=== PATIENT | male | born 1985 | race Caucasian/White ===

== ENCOUNTER 2022-04-26 00:40 | Inpatient (IN) | payer OTHER, SELFPAY ==
[2022-04-26] VITALS (9 sets, daily range): BP systolic 124–141; BP diastolic 75–92; PULSE 75–102; RESP 18–20; TEMP 36.3–37.1; O2SAT 94–97; BMI 31.0
--- NOTE | 2022-04-26 00:56 | ED_ITS ---
HPI - Psych General Chief Complaint: Psychiatric Symptoms <Radha Davies NP - Last Filed: 04/26/22 04:47> Stated Complaint: CRISIS <Radha Davies NP - Last Filed: 04/26/22 04:47> Time Seen by Provider: 04/26/22 00:52 <Radha Davies NP - Last Filed: 04/26/22 04:47> Source: patient and EMS <Radha Davies NP - Last Filed: 04/26/22 04:47> Mode of arrival: EMS <Radha Davies NP - Last Filed: 04/26/22 04:47> Limitations: no limitations <Radha Davies NP - Last Filed: 04/26/22 04:47> History of Present Illness HPI Narrative: 36-year-old male presents via EMS for crisis evaluation. Patient made a suicidal statement to his ex-, was on a social media anni and had a gun pointed to his head. Patient's ex- called police, police found this patient outside of a bar intoxicated, police called EMS to have patient evaluated in the emergency department. Upon presentation to the emergency department, patient is belligerent, refusing the changeover, and threatening violence to staff members. <ROSEMARY Mackey Last Filed: 04/26/22 04:47> MD complaint: suicidal ideation, feels depressed and alcohol abuse <Radha Davies NP - Last Filed: 04/26/22 04:47> Onset (ago): unknown <Radha Davies NP - Last Filed: 04/26/22 04:47> Exacerbating factors: alcohol <Radha Davies NP - Last Filed: 04/26/22 04:47> Context: recent alcohol abuse <Radha Davies NP - Last Filed: 04/26/22 04:47> Associated psychiatric symptoms: depression and suicidal ideation <Radha Davies NP - Last Filed: 04/26/22 04:47> Treatments prior to arrival: placed on mental health hold <ROSEMARY Mackey Last Filed: 04/26/22 04:47> If self harm: admits thoughts of self harm and has plan <Radha Davies NP - Last Filed: 04/26/22 04:47> Related Data Home Medications: Home Medications Medication Instructions Recorded Confirmed alprazolam 1 mg tablet 1 mg PO TID PRN Anxiety 04/26/22 04/26/22 oxycodone 5 mg tablet 5 mg PO Q4H PRN Breakthrough Pain, 04/26/22 04/26/22 Moderate <Radha Davies NP - Last Filed: 04/26/22 04:47> Allergies/Adverse Reactions: Allergies Allergy/AdvReac Type Severity Reaction Status Date / Time No Known Allergies Allergy Verified 04/26/22 01:04 <Radha Davies NP - Last Filed: 04/26/22 04:47> Review of Systems Review of Systems: Yes Unobtainable due to mental status (Patient noncompliant at this time) <Radha Davies NP - Last Filed: 04/26/22 04:47> [facility] Past Medical History Attestation statement: The following information was validated with the patient. <Radha Davies NP - Last Filed: 04/26/22 04:47> Source: old records reviewed <Radha Davies NP - Last Filed: 04/26/22 04:47> Social History Social History: Social History Advance Directives: No Advance Directives Information Provided: Yes <Radha Davies NP - Last Filed: 04/26/22 04:47> Physical Exam Vital Signs: Vital Signs: Last Vital Signs Temp 98.7 F 04/26/22 01:02 Pulse 102 H 04/26/22 01:02 Resp 04/26/22 02:55 BP 141/92 H 04/26/22 01:02 Pulse Ox 94 04/26/22 01:02 O2 Del Method 04/26/22 01:02 BMI result Body Mass Index 31.0 <Radha Davies NP - Last Filed: 04/26/22 04:47> Vital Signs: Last Vital Signs Temp 98.7 F 04/26/22 01:02 Pulse 102 H 04/26/22 01:02 Resp 04/26/22 02:55 BP 141/92 H 04/26/22 01:02 Pulse Ox 94 04/26/22 01:02 O2 Del Method 04/26/22 01:02 BMI result Body Mass Index 31.0 <Destinee Ley MD - Last Filed: 04/26/22 07:05> Appearance: Alert. Intoxicated. Uncooperative. Eyes: Pupils equal, round and reactive to light. ENT: Pharynx normal. Neck: Normal inspection. Neck supple. CVS: Tachycardic heart rate and rhythm. Respiratory: No respiratory distress. Breath sounds normal. Abdomen: Soft and nontender. Skin: Skin warm and dry. Normal skin color. Normal skin turgor. Extremities: Gait balanced and coordinated. Neuro: No motor deficit. No sensory deficit. Cranial nerves 2-12 intact. <Radha Davies NP - Last Filed: 04/26/22 04:47> Course Course Course Narrative: 36-year-old male presents via EMS for suicidal statement, ex- called the police because during correspondence on a social media appy, patient had a gun pointed to his head. Police were able to find the patient outside of a bar intoxicated, and encourages patient to present to the emergency department vo luntarily EMS stated that this patient was cooperative on transport, once patient got to the emergency department he believed that he could leave. One patient was informed that he could not leave, he became belligerent, argumentative, threatening staff. Patient was physically and medically restra ined for his safety. Alcohol level 169, patient not be able to be evaluated until the morning. Ann morgan moved from [place] to [place] about 2 weeks ago. Patient has not presented to this facility in the past. Section 12 bed search. <Radha Davies NP - Last Filed: 04/26/22 04:47> Reevaluation(s) Reevaluation #1: Continue physician observation, patient is due to be seen by the care team but has significant events involving suicidal ideation with suicidal gesture with a gun. Patient required physical and medication restrained last night, he is not on medications and has significant inciting events such as anniversary of his brother's as well as an ongoing divorce. He has been placed on a CIWA for suspected chronic alcohol use. This patient is a high flight risk. <Destinee Ley MD - Last Filed: 04/26/22 07:05> Time: 07:04 <Destinee Ley MD - Last Filed: 12/27/22 07:05> Medications Administered Discontinued Medications Generic Name Dose Route Start Last Admin Trade Name Freq PRN Reason Stop Dose Admin Midazolam HCl 4 mg 04/26/22 01:48 04/26/22 02:00 Midazolam Hcl/Pf 2 Mg/2 Ml Vial IM 04/26/22 01:49 4 mg ONCE ONE Administration Olanzapine 10 mg 04/26/22 01:48 04/26/22 02:00 Olanzapine 10 Mg Vial IM 04/26/22 01:49 10 mg STAT STA Administration <Radha Davies NP - Last Filed: 04/26/22 04:47> Medications Administered Discontinued Medications Generic Name Dose Route Start Last Admin Trade Name Freq PRN Reason Stop Dose Admin Midazolam HCl 4 mg 04/26/22 01:48 04/26/22 02:00 Midazolam Hcl/Pf 2 Mg/2 Ml Vial IM 04/26/22 01:49 4 mg ONCE ONE Administration Olanzapine 10 mg 04/26/22 01:48 04/26/22 02:00 Olanzapine 10 Mg Vial IM 04/26/22 01:49 10 mg STAT STA Administration <Destinee Ley MD - Last Filed: 04/26/22 07:05> Medical Decision Making Differential Diagnosis Differential Diagnoses: The differential diagnosis associated with the presentation includes <Radha Davies NP - Last Filed: 04/26/22 04:47> Crisis, intoxication <Radha Davies NP - Last Filed: 04/26/22 04:47> Admission/Observation Consideration of admission/observation: Escalation of care including admission/observation considered <Radha Davies NP - Last Filed: 04/26/22 04:47> Section 12 bed search <Radha Davies NP - Last Filed: 04/26/22 04:47> Consult Healthcare Provider Management of the patient was discussed with: Behavioral Health Provider <Radha Davies NP - Last Filed: 04/26/22 04:47> Lab Data MDM Lab Attestation statement: I reviewed the patient's lab results. <Radha Davies NP - Last Filed: 04/26/22 04:47> Result Diagrams: : 04/26/22 01:08 04/26/22 01:08 <Radha Davies NP - Last Filed: 04/26/22 04:47> Labs: Lab Results 04/26/22 04/26/22 04/26/22 Range/Units 01:08 01:08 01:08 WBC 13.9 H (4.8-10.8) X10*3/uL RBC 5.16 (4.60-5.80) X10*6/uL Hgb 15.3 (14.0-18.0) g/dl Hct 45.6 (42.0-52.0) % MCV 88.4 (80.0-98.0) fL MCH 29.7 (27.0-33.0) pg MCHC 33.6 (31.0-36.0) g/dl RDW 13.6 (11.0-16.0) % Plt Count 381 (160-400) X10*3/uL MPV 8.9 L (9.4-12.4) fL Immature Gran % (Auto) 0.9 H (0.0-0.4) % Neut % (Auto) 72.4 (45-73) % Lymph % (Auto) 20.2 (20-40) % Gulf % (Auto) 4.7 (2-11) % Eos % (Auto) 1.2 (0-4) % Baso % (Auto) 0.6 (0-2) % Lymph # (Auto) 2.8 (1.2-4.9) X10*3/uL Gulf # (Auto) 0.7 (0.1-1.2) X10*3/uL Eos # (Auto) 0.2 (0.0-0.4) X10*3/uL Baso # (Auto) 0.1 (0.0-0.2) X10*3/uL Abs Immat Gran (auto) 0.13 H (0.00-0.03) X10*3/uL Absolute Neuts (auto) 10.1 H (2.0-8.3) x10*3/uL Absolute Nucleated RBC 0.000 (0.0-0.012) X10*3/uL Nucleated RBC % (auto) 0.0 (0.0-0.2) /100WBC Sodium 146 H (135-145) mmol/L Potassium 4.8 (3.3-5.1) mmol/L Chloride 109 H (96-108) mmol/L Carbon Dioxide 21 L (22-29) mmol/L Anion Gap 21 H (12-20) BUN 14 (9-16) mg/dL Creatinine 0.89 (0.5-1.4) mg/dL Estim Creat Clear Calc 131.9 Estimated GFR > 60 Random Glucose 92 (60-115) mg/dL Calcium 9.5 (8.4-10.2) mg/dL Total Bilirubin 0.2 (0.0-1.0) mg/dL AST 26 (5-37) U/L ALT 32 (0-40) U/L Alkaline Phosphatase 83 (39-117) U/L Total Protein 7.4 (6.5-8.0) g/dL Albumin 4.4 (3.5-5.0) g/dL Ethyl Alcohol mg/dL Influenza Type A (PCR) NEGATIVE (Negative) Influenza Type B (PCR) NEGATIVE (Negative) RSV RNA Qual (PCR) NEGATIVE (Negative) SARS-CoV-2 RNA (RT-PCR) NEGATIVE (Negative) 04/26/22 Range/Units 01:08 WBC (4.8-10.8) X10*3/uL RBC (4.60-5.80) X10*6/uL Hgb (14.0-18.0) g/dl Hct (42.0-52.0) % MCV (80.0-98.0) fL MCH (27.0-33.0) pg MCHC (31.0-36.0) g/dl RDW (11.0-16.0) % Plt Count (160-400) X10*3/uL MPV (9.4-12.4) fL Immature Gran % (Auto) (0.0-0.4) % Neut % (Auto) (45-73) % Lymph % (Auto) (20-40) % Gulf % (Auto) (2-11) % Eos % (Auto) (0-4) % Baso % (Auto) (0-2) % Lymph # (Auto) (1.2-4.9) X10*3/uL Gulf # (Auto) (0.1-1.2) X10*3/uL Eos # (Auto) (0.0-0.4) X10*3/uL Baso # (Auto) (0.0-0.2) X10*3/uL Abs Immat Gran (auto) (0.00-0.03) X10*3/uL Absolute Neuts (auto) (2.0-8.3) x10*3/uL Absolute Nucleated RBC (0.0-0.012) X10*3/uL Nucleated RBC % (auto) (0.0-0.2) /100WBC Sodium (135-145) mmol/L Potassium (3.3-5.1) mmol/L Chloride (96-108) mmol/L Carbon Dioxide (22-29) mmol/L Anion Gap (12-20) BUN (9-16) mg/dL Creatinine (0.5-1.4) mg/dL Estim Creat Clear Calc Estimated GFR Random Glucose (60-115) mg/dL Calcium (8.4-10.2) mg/dL Total Bilirubin (0.0-1.0) mg/dL AST (5-37) U/L ALT (0-40) U/L Alkaline Phosphatase (39-117) U/L Total Protein (6.5-8.0) g/dL Albumin (3.5-5.0) g/dL Ethyl Alcohol 169 mg/dL Influenza Type A (PCR) (Negative) Influenza Type B (PCR) (Negative) RSV RNA Qual (PCR) (Negative) SARS-CoV-2 RNA (RT-PCR) (Negative) <Radha Davies, [employer] - Last Filed: 04/26/22 04:47> Lab Results 04/26/22 04/26/22 04/26/22 Range/Units 01:08 01:08 01:08 WBC 13.9 H (4.8-10.8) X10*3/uL RBC 5.16 (4.60-5.80) X10*6/uL Hgb 15.3 (14.0-18.0) g/dl Hct 45.6 (42.0-52.0) % MCV 88.4 (80.0-98.0) fL MCH 29.7 (27.0-33.0) pg MCHC 33.6 (31.0-36.0) g/dl RDW 13.6 (11.0-16.0) % Plt Count 381 (160-400) X10*3/uL MPV 8.9 L (9.4-12.4) fL Immature Gran % (Auto) 0.9 H (0.0-0.4) % Neut % (Auto) 72.4 (45-73) % Lymph % (Auto) 20.2 (20-40) % Gulf % (Auto) 4.7 (2-11) % Eos % (Auto) 1.2 (0-4) % Baso % (Auto) 0.6 (0-2) % Lymph # (Auto) 2.8 (1.2-4.9) X10*3/uL Gulf # (Auto) 0.7 (0.1-1.2) X10*3/uL Eos # (Auto) 0.2 (0.0-0.4) X10*3/uL Baso # (Auto) 0.1 (0.0-0.2) X10*3/uL Abs Immat Gran (auto) 0.13 H (0.00-0.03) X10*3/uL Absolute Neuts (auto) 10.1 H (2.0-8.3) x10*3/uL Absolute Nucleated RBC 0.000 (0.0-0.012) X10*3/uL Nucleated RBC % (auto) 0.0 (0.0-0.2) /100WBC Sodium 146 H (135-145) mmol/L Potassium 4.8 (3.3-5.1) mmol/L Chloride 109 H (96-108) mmol/L Carbon Dioxide 21 L (22-29) mmol/L Anion Gap 21 H (12-20) BUN 14 (9-16) mg/dL Creatinine 0.89 (0.5-1.4) mg/dL Estim Creat Clear Calc 131.9 Estimated GFR > 60 Random Glucose 92 (60-115) mg/dL Calcium 9.5 (8.4-10.2) mg/dL Total Bilirubin 0.2 (0.0-1.0) mg/dL AST 26 (5-37) U/L ALT 32 (0-40) U/L Alkaline Phosphatase 83 (39-117) U/L Total Protein 7.4 (6.5-8.0) g/dL Albumin 4.4 (3.5-5.0) g/dL Ethyl Alcohol mg/dL Influenza Type A (PCR) NEGATIVE (Negative) Influenza Type B (PCR) NEGATIVE (Negative) RSV RNA Qual (PCR) NEGATIVE (Negative) SARS-CoV-2 RNA (RT-PCR) NEGATIVE (Negative) 04/26/22 Range/Units 01:08 WBC (4.8-10.8) X10*3/uL RBC (4.60-5.80) X10*6/uL Hgb (14.0-18.0) g/dl Hct (42.0-52.0) % MCV (80.0-98.0) fL MCH (27.0-33.0) pg MCHC (31.0-36.0) g/dl RDW (11.0-16.0) % Plt Count (160-400) X10*3/uL MPV (9.4-12.4) fL Immature Gran % (Auto) (0.0-0.4) % Neut % (Auto) (45-73) % Lymph % (Auto) (20-40) % Gulf % (Auto) (2-11) % Eos % (Auto) (0-4) % Baso % (Auto) (0-2) % Lymph # (Auto) (1.2-4.9) X10*3/uL Gulf # (Auto) (0.1-1.2) X10*3/uL Eos # (Auto) (0.0-0.4) X10*3/uL Baso # (Auto) (0.0-0.2) X10*3/uL Abs Immat Gran (auto) (0.00-0.03) X10*3/uL Absolute Neuts (auto) (2.0-8.3) x10*3/uL Absolute Nucleated RBC (0.0-0.012) X10*3/uL Nucleated RBC % (auto) (0.0-0.2) /100WBC Sodium (135-145) mmol/L Potassium (3.3-5.1) mmol/L Chloride (96-108) mmol/L Carbon Dioxide (22-29) mmol/L Anion Gap (12-20) BUN (9-16) mg/dL Creatinine (0.5-1.4) mg/dL Estim Creat Clear Calc Estimated GFR Random Glucose (60-115) mg/dL Calcium (8.4-10.2) mg/dL Total Bilirubin (0.0-1.0) mg/dL AST (5-37) U/L ALT (0-40) U/L Alkaline Phosphatase (39-117) U/L Total Protein (6.5-8.0) g/dL Albumin (3.5-5.0) g/dL Ethyl Alcohol 169 mg/dL Influenza Type A (PCR) (Negative) Influenza Type B (PCR) (Negative) RSV RNA Qual (PCR) (Negative) SARS-CoV-2 RNA (RT-PCR) (Negative) <Destinee Ley MD - Last Filed: 04/26/22 07:05> Independent Historian Clinical information obtained from an independent historian. History obtained from or confirmed by: EMS <Radha Davies NP - Last Filed: 04/26/22 04:47> Discharge Plan Discharge Clinical Impression: Suicidal ideation, Depression <Radha Davies NP - Last Filed: 04/26/22 04:47> Patient Disposition: Still a Patient <Radha Davies NP - Last Filed: 04/26/22 04:47> Prescriptions: No Action alprazolam 1 mg Tablet 1 mg PO TID PRN (Reason: Anxiety) oxycodone 5 mg Tablet 5 mg PO Q4H PRN (Reason: Breakthrough Pain, Moderate) <Radha Davies NP - Last Filed: 04/26/22 04:47> Interventions: [place]-Suicide Risk Severity Scale Last Done: 04/26/22 05:53 <Radha Davies NP - Last Filed: 04/26/22 04:47>
[2022-04-26 01:15] LABS: Basophils Absolute Auto 0.1 X10*3/uL (0.0-0.2); Basophils Percent Auto 0.6 % (0-2); Eosinophils Absolute Auto 0.2 X10*3/uL (0.0-0.4); Eosinophils Percent Auto 1.2 % (0-4); Hematocrit 45.6 % (42.0-52.0); Hemoglobin 15.3 g/dl (14.0-18.0); Imm Gran Abs Auto 0.13 X10*3/uL (0.00-0.03); Imm Gran Pct Auto 0.9 % (0.0-0.4); Lymphocytes Absolute Auto 2.8 X10*3/uL (1.2-4.9); Lymphocytes Percent Auto 20.2 % (20-40); MANUAL DIFF FLAG NO; Mean Corpuscular HGB Conc 33.6 g/dl (31.0-36.0); Mean Corpuscular Hemoglobin 29.7 pg (27.0-33.0); Mean Corpuscular Volume 88.4 fL (80.0-98.0); Mean Platelet Volume 8.9 fL (9.4-12.4); Monocytes Absolute Auto 0.7 X10*3/uL (0.1-1.2); Monocytes Percent Auto 4.7 % (2-11); Neutrophils Absolute Auto 10.1 x10*3/uL (2.0-8.3); Neutrophils Percent Auto 72.4 % (45-73); Platelet Count 381 X10*3/uL (160-400); Red Blood Count 5.16 X10*6/uL (4.60-5.80); Red Cell Distribution Width 13.6 % (11.0-16.0); White Blood Count 13.9 X10*3/uL (4.8-10.8)
[2022-04-26 01:34] LABS: Ethanol 169 mg/dL
[2022-04-26 01:43] LABS: Alanine Aminotransferase 32 U/L (0-40); Albumin Level 4.4 g/dL (3.5-5.0); Alkaline Phosphatase 83 U/L (39-117); Anion Gap 21 (12-20); Aspartate Amino Transferase 26 U/L (5-37); Bilirubin Total 0.2 mg/dL (0.0-1.0); Blood Urea Nitrogen 14 mg/dL (9-16); Calcium 9.5 mg/dL (8.4-10.2); Carbon Dioxide 21 mmol/L (22-29); Chloride 109 mmol/L (96-108); Creatinine Clr Calc Pharmacy 131.9; Estimated Glomerular Filt Rate > 60; Glucose Random 92 mg/dL (60-115); Potassium 4.8 mmol/L (3.3-5.1); Sodium 146 mmol/L (135-145); Total Protein 7.4 g/dL (6.5-8.0)
[2022-04-26 01:52] LABS: Influenza A PCR NEGATIVE (Negative); Influenza B PCR NEGATIVE (Negative); Resp Syncy Virus RNA Qual PCR NEGATIVE (Negative); SARS COV2 PCR INHOUSE NEGATIVE (Negative)
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
--- NOTE | 2022-04-26 05:39 | PC.NURSE ---
Patient at the time of arrival refused to engage in changeover process, patient was not sectioned by PD despite making suicidal statement and gesture with gun, provider notified/asked care team to intervene, care team after speaking with PD and EMS crew placed patient on section 12, care team explained the section to the patient but continues to refuse to change became agitated, in an attempt to escort patient to his room, patient became combative, provider ordered physical restraint @ 0155, ordered Versed 4 mg IM and Olanzapine 10 mg IM/administered @0200, physical restraint discontinued by the provider at 0230/ROM checked/WNL, BHN referral completed, however patient will be evaluated by the care team in the morning, changeover partially pending due to restraint, provider okayed to have changeover done in the morning, patient has been sleeping since 0300, med rec completed/pending provider's approval, will continue to monitor.
--- NOTE | 2022-04-26 09:45 | PC.NURSE ---
Pt changed over to hospital clothes. Unable to provide urine sample.
--- NOTE | 2022-04-26 12:09 | MHC.CARE ---
[place] with the [facility] [phone] calls to report that a section 35 warrant has been initiated for this patient. It expires on May 03, 2022 at 4:30pm. Please contact [facility] dispatch for further collaboration or inquiries into coordinating care.
--- NOTE | 2022-04-26 12:43 | PC.NURSE ---
Addendum entered by Georgia Phipps 04/26/22 13:08: Med rec completed by pharmacy. Pt denies taking other medication besides PRNs Original Note: Attempted to verify med rec with physician done by overnight staff. Per MD: pharmacy is to make contact with [place] pharmacy for verification of medication. Pharmacy notified.
--- NOTE | 2022-04-26 13:15 | PHA.MEDREC ---
Pharmacy Consult ? Medication Reconciliation Pharmacy has completed the medication reconciliation. Patient get medincation for [facility] in [place], [place] [phone]. Leidy Hartley, JuleeD
[2022-04-26] MEDS: oxyCODONE HCl Immed Release 5 MG TABLET 10 MG PO ×2 (14:27→22:25)
[2022-04-26] MEDS: ALPRAZolam 0.5 MG TABLET 1 MG PO ×2 (14:27→22:24)
--- NOTE | 2022-04-26 14:56 | ECG_ITS ---
Test Reason : med clearance Blood Pressure : / mmHG Vent. Rate : 076 BPM Atrial Rate : 076 BPM P-R Int : 160 ms QRS Dur : 100 ms QT Int : 376 ms P-R-T Axes : 037 -09 014 degrees QTc Int : 423 ms Normal sinus rhythm Normal ECG When compared with ECG of 07-FEB-2005 00:05, Vent. rate has decreased BY 58 BPM Referred By: Radha Davies Electronically Signed By:JOANNE PATTON MD
[2022-04-26 15:37] LABS: Amphetamine Screen Urine Not Detected (Not Detect); Barbiturates, Urine Not Detected (Not Detect); Benzodiazepines Screen Urine POSITIVE (Not Detect); Cannabinoid Screen Urine POSITIVE (Not Detect); Cocaine Screen Urine POSITIVE (Not Detect); Fentanyl, urine POSITIVE (Not Detect); Opiate Screen Urine Not Detected (Not Detect); Phencyclidine Screen Urine Not Detected (Not Detect)
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
[2022-04-26] MEDS: cloNIDine HCL 0.1 MG TABLET PO (22:25)
[2022-04-26] MEDS: Famotidine 20 MG TABLET PO (22:26)
--- NOTE | 2022-04-26 22:35 | PC.NURSE ---
CIWA-refused assessment at 1999. allowed for assessment at this time and scored 0. requested not be be woken during the night for assessment ''I don't drink that much'' medicated at this time with clonidine, xanax and oxy on prn basis. see VS.
[2022-04-26] MEDS: Throat Lozenge, Medicated LOZENGE 1 LOZENGE MUCOUS MEM (23:51)
[2022-04-26] MEDS: Doxepin HCl 10 MG CAPSULE PO (23:56)
[2022-04-26] MEDS: Nicotine Polacrilex 2 MG GUM 4 MG BUCCAL (23:59)
[2022-04-27] MEDS: guaiFENesin LA 600 MG TAB.ER.12H PO ×3 (00:50→20:50)
--- NOTE | 2022-04-27 06:12 | PC.NURSE ---
not woken for CIWA in early AM, observed to be resting comfortably
[2022-04-27 09:01] VITALS: BP 140/96; PULSE 79; RESP 18; TEMP 36.2; O2SAT 98
[2022-04-27] MEDS: DULoxetine HCl 60 MG CAPSULE.DR PO (09:03)
[2022-04-27] MEDS: Famotidine 20 MG TABLET PO ×2 (09:03→20:50)
[2022-04-27] MEDS: DULoxetine HCl 20 MG CAPSULE.DR PO (09:03)
[2022-04-27] MEDS: oxyCODONE HCl Immed Release 5 MG TABLET 10 MG PO ×2 (09:10→17:21)
[2022-04-27] MEDS: ALPRAZolam 0.5 MG TABLET 1 MG PO ×2 (11:53→18:45)
[2022-04-27 12:11] VITALS: BP 126/81; PULSE 80; RESP 18; TEMP 36.7; O2SAT 97
[2022-04-27] MEDS: Nicotine 21 MG PATCH.TD24 TRANSDERMA (13:31)
[2022-04-27] MEDS: Throat Lozenge, Medicated LOZENGE 1 LOZENGE MUCOUS MEM ×2 (13:31→21:59)
[2022-04-27] MEDS: cloNIDine HCL 0.1 MG TABLET PO ×2 (13:39→20:50)
[2022-04-27] MEDS: hydrOXYzine HCL 25 MG TABLET PO (13:39)
--- NOTE | 2022-04-27 18:12 | P.HPPS_ITS ---
HPI Date of Service: 04/27/22 Chief Complaint: SI HPI Narrative: pt BIB police after having been on video chat with his ex- during which time he reportedly held a gun to his head and expressed SI. he was intoxicated at the time. his brother overdosed on opioids about one year ago this time, his has left him and taken their two children with her, he has a substance abuse problem, he has access to weapons both here and in [place], where he is from, and he also has TBI with cognitive deficits. he reports he came to [place] to pursue surgical care in [place] for his chronic back pain with botched corrective surgeries, most recent one reportedly about 16-18 weeks ago. he states he vi tish-called his ex-, as described above, in order to speak with his children. he denies expressing SI or holding anything to his head. reports he overdosed on opioids about a month ago in [place], pt describes that as a one-off event. ex- also reports methamphetamine use, which pt denies. also minimizes other substance use in a way that is not supported by the objective evidence and collateral information available. pt describes 30 foot fall to concrete in 2011 resulting in TBI and chronic back pain. reports he had no mental health Hx prior to the TBI/fall and that since he has had cognitive changes and impaired short-term memory. he denies lability or impulsiveness, but crisis eval reports his has from him in part due to his volatility. pt's parents obtained a section 35 warrant which expires 05/03/22. on interview, pt essentially denies any substantial drug problem as well as any acute mental health problems, including SI, and states he should not be in the hospital and would like to be discharged so he can attend an appointment in [place] on monday morning with back surgeon. he is informed we will continue his home meds and put him on ativan per [facility] protocol for now. Past Psychiatric History: hosps: 1 in [place] about 10 years ago SA: denies SIB: denies currently in outpt Tx with providers in [place] no mental health Hx prior to 30 foot fall onto concrete in 2011 resulting in TBI and chronic back pain Medical Evaluation Reviewed: Yes PMF Narrative: 30-foot fall onto concrete in 2011 resulting in TBI and chronic back pain Family History: brother - opioids, from opioid overdose Social History: reports he is from a woman who lives in [place]. they have two children around 7-8 yo together who live with her. 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 Substance History: in general pt's description of his substance use is quite divergent from that described by collateral sources. he appears to be substantially under-reporting his consumption. alcohol - reports minimal intake, likely inaccurate. opioids - reports overdose in the past month in [place] was a one-off event, he hasn't had opioids other than as prescribed for a very long time (also likely inaccurate). benzos - states he takes them as prescribed. cocaine - reports recent cocaine use was first time in 9 years he has used it (highly unlikely) methamphetamines - denies use. per collateral from , pt uses. Trauma History: denies, aside from traumatic fall. he used to have intrusive thoughts and perhaps nightmares shortly after the trauma, but he denies any current Sx. Diagnostics Vital Signs (24Hr): Vital Signs - 24 hr 04/26/22 22:33 04/27/22 09:01 04/27/22 12:11 Temperature 97.4 F 97.2 F 98.1 F Pulse Rate 75 79 80 Respiratory Rate 18 18 Blood Pressure 141/79 H 140/96 H 126/81 Pulse Oximetry 97 98 97 Oxygen Delivery Method Room Air Room Air Room Air BMI result Body Mass Index 31.0 Labs Results: 04/26/22 01:08 04/26/22 01:08 Labs: Laboratory Results - last 48 hr 04/26/22 04/26/22 04/26/22 01:08 01:08 01:08 WBC 13.9 H RBC 5.16 Hgb 15.3 Hct 45.6 MCV 88.4 MCH 29.7 MCHC 33.6 RDW 13.6 Plt Count 381 MPV 8.9 L Immature Gran % (Auto) 0.9 H Neut % (Auto) 72.4 Lymph % (Auto) 20.2 [place] % (Auto) 4.7 Eos % (Auto) 1.2 Baso % (Auto) 0.6 Lymph # (Auto) 2.8 [place] # (Auto) 0.7 Eos # (Auto) 0.2 Baso # (Auto) 0.1 Abs Immat Gran (auto) 0.13 H Absolute Neuts (auto) 10.1 H Absolute Nucleated RBC 0.000 Nucleated RBC % (auto) 0.0 Sodium 146 H Potassium 4.8 Chloride 109 H Carbon Dioxide 21 L Anion Gap 21 H BUN 14 Creatinine 0.89 Estim Creat Clear Calc 131.9 Estimated GFR > 60 Random Glucose 92 Calcium 9.5 Total Bilirubin 0.2 AST 26 ALT 32 Alkaline Phosphatase 83 Total Protein 7.4 Albumin 4.4 Urine Opiates Screen Urine Fentanyl Screen Ur Barbiturates Screen Ur Phencyclidine Scrn Ur Amphetamines Screen U Benzodiazepines Scrn Urine Cocaine Screen U Marijuana (THC) Screen Ethyl Alcohol Influenza Type A (PCR) NEGATIVE Influenza Type B (PCR) NEGATIVE RSV RNA Qual (PCR) NEGATIVE SARS-CoV-2 RNA (RT-PCR) NEGATIVE 04/26/22 04/26/22 01:08 15:15 WBC RBC Hgb Hct MCV MCH MCHC RDW Plt Count MPV Immature Gran % (Auto) Neut % (Auto) Lymph % (Auto) [place] % (Auto) Eos % (Auto) Baso % (Auto) Lymph # (Auto) [place] # (Auto) Eos # (Auto) Baso # (Auto) Abs Immat Gran (auto) Absolute Neuts (auto) Absolute Nucleated RBC Nucleated RBC % (auto) Sodium Potassium Chloride Carbon Dioxide Anion Gap BUN Creatinine Estim Creat Clear Calc Estimated GFR Random Glucose Calcium Total Bilirubin AST ALT Alkaline Phosphatase Total Protein Albumin Urine Opiates Screen Not Detected Urine Fentanyl Screen POSITIVE H Ur Barbiturates Screen Not Detected Ur Phencyclidine Scrn Not Detected Ur Amphetamines Screen Not Detected U Benzodiazepines Scrn POSITIVE H Urine Cocaine Screen POSITIVE H U Marijuana (THC) Screen POSITIVE H Ethyl Alcohol 169 Influenza Type A (PCR) Influenza Type B (PCR) RSV RNA Qual (PCR) SARS-CoV-2 RNA (RT-PCR) Meds/Allergies Meds Home Medications Medication Instructions Recorded Confirmed Type alprazolam 1 mg tablet 1 mg PO TID PRN Anxiety 04/26/22 04/26/22 History clonidine HCl 0.1 mg tablet 0.1 mg PO BID PRN Anxiety 04/26/22 04/26/22 History doxepin 10 mg capsule 10 mg PO BEDTIME PRN Insomnia 04/26/22 04/26/22 History duloxetine 20 mg capsule,delayed 20 mg PO DAILY 04/26/22 04/26/22 History release duloxetine 60 mg capsule,delayed 60 mg PO DAILY 04/26/22 04/26/22 History release famotidine 20 mg tablet 20 mg PO BID 04/26/22 04/26/22 History ondansetron 4 mg disintegrating 4 mg PO Q8H PRN Nausea 04/26/22 04/26/22 History tablet oxycodone 5 mg tablet 10 mg PO Q8H PRN Breakthrough 04/26/22 04/26/22 History Pain, Moderate quetiapine 100 mg tablet 100 - 200 mg PO BEDTIME PRN 04/26/22 04/26/22 History Insomnia Allergies Allergies Allergy/AdvReac Type Severity Reaction Status Date / Time No Known Allergies Allergy Verified 04/26/22 01:04 Mental Status Exam Mental Status Exam Narrative: calm, cooperative. adequately dressed and groomed. no PMA/PMR. speech nml in rate, amount, loudness, tone, latency. thoughts superficially linear and logical but some signs of disorganization and concentration and reasoning deficits. affect constricted, normo-intense, non-labile. mood decent. denies SI/SIBI/HI/AVH. Assessment & Plan Assessment & Plan (1) Cognitive deficit as late effect of traumatic brain injury: Status: Acute Code(s): F06.8 - Other specified mental disorders due to known physiological condition; S06.9X0S - Unspecified intracranial injury without loss of consciousness, sequela (2) Adjustment disorder with mixed disturbance of emotions and conduct: Status: Acute Code(s): F43.25 - Adjustment disorder with mixed disturbance of emotions and conduct (3) Polysubstance (including opioids) dependence with physiological dependence: Status: Acute Code(s): F19.20 - Other psychoactive substance dependence, uncomplicated Plan continue home meds for now. execute section 35. Patient educated on: diagnosis, medication risk/benefits and substance abuse Reason for continued inpatient stay Substantial Risk for: harm to self, inability to function and rapid decompensation Statement Statement: I have reviewed the history and physical and performed a pertinent examination on my patient. No changes have occurred unless specified. If the History and Physical was not performed prior to admission, the Hospitalist's service will be consulted for completing the admission physical. Time Spent With Patient Time: Total time managing care of this patient today _70___ minutes.
[2022-04-27] MEDS: Nicotine Polacrilex 2 MG GUM 4 MG BUCCAL (18:47)
[2022-04-27 20:38] VITALS: BP 123/85; PULSE 94; RESP 18; TEMP 36.4; O2SAT 94
[2022-04-27] MEDS: Doxepin HCl 10 MG CAPSULE PO (20:51)
[2022-04-27] MEDS: QUEtiapine Fumarate 100 MG TABLET PO (21:59)
[2022-04-27] MEDS: traZODone HCL 50 MG TABLET PO (21:59)
[2022-04-28] MEDS: DULoxetine HCl 20 MG CAPSULE.DR PO (09:18)
[2022-04-28] MEDS: guaiFENesin LA 600 MG TAB.ER.12H PO (09:18)
[2022-04-28] MEDS: DULoxetine HCl 60 MG CAPSULE.DR PO (09:18)
[2022-04-28] MEDS: Famotidine 20 MG TABLET PO (09:18)
[2022-04-28] MEDS: Nicotine 21 MG PATCH.TD24 TRANSDERMA (09:19)
[2022-04-28] MEDS: oxyCODONE HCl Immed Release 5 MG TABLET 10 MG PO (09:21)
[2022-04-28] MEDS: ALPRAZolam 0.5 MG TABLET 1 MG PO (09:21)
[2022-04-28] MEDS: Nicotine Polacrilex 2 MG GUM 4 MG BUCCAL (10:50)
--- NOTE | 2022-04-28 10:52 | P.DS_ITS ---
DS: Providers Provider Date of Service: 04/28/22 Date of admission: 04/26/22 17:01 Primary care physician: Nonstaff Physician DS: Diagnosis Discharge Diagnosis (1) Cognitive deficit as late effect of traumatic brain injury: Status: Acute (2) Adjustment disorder with mixed disturbance of emotions and conduct: Status: Acute (3) Polysubstance (including opioids) dependence with physiological dependence: Status: Acute DS: Medications Discharge Medications Home Medications: Home Medications Medication Instructions Recorded Confirmed alprazolam 1 mg tablet 1 mg PO TID PRN Anxiety 04/26/22 04/26/22 clonidine HCl 0.1 mg tablet 0.1 mg PO BID PRN Anxiety 04/26/22 04/26/22 doxepin 10 mg capsule 10 mg PO BEDTIME PRN Insomnia 04/26/22 04/26/22 duloxetine 20 mg capsule,delayed 20 mg PO DAILY 04/26/22 04/26/22 release duloxetine 60 mg capsule,delayed 60 mg PO DAILY 04/26/22 04/26/22 release famotidine 20 mg tablet 20 mg PO BID 04/26/22 04/26/22 ondansetron 4 mg disintegrating 4 mg PO Q8H PRN Nausea 04/26/22 04/26/22 tablet oxycodone 5 mg tablet 10 mg PO Q8H PRN Breakthrough 04/26/22 04/26/22 Pain, Moderate quetiapine 100 mg tablet 100 - 200 mg PO BEDTIME PRN 04/26/22 04/26/22 Insomnia Previous Rx's Medication Instructions Recorded nicotine (polacrilex) 2 mg gum 4 mg buccal Q2H PRN Nicotine 04/28/22 Cravings #0 ea nicotine 21 mg/24 hr daily 21 mg transdermal DAILY #0 ea 04/28/22 transdermal patch Mental Status Exam Mental Status Exam Narrative: calm, cooperative. adequately dressed and groomed. no PMA/PMR. speech nml in rate, amount, loudness, tone, latency. thoughts superficially linear and logical. affect constricted, normo-intense, non-labile. Data Data Completed and Pending Completed studies during hospitalization [Text1]: 04/26/22 04/26/22 04/26/22 01:08 01:08 01:08 WBC 13.9 H RBC 5.16 Hgb 15.3 Hct 45.6 MCV 88.4 MCH 29.7 MCHC 33.6 RDW 13.6 Plt Count 381 MPV 8.9 L Immature Gran % (Auto) 0.9 H Neut % (Auto) 72.4 Lymph % (Auto) 20.2 [place] % (Auto) 4.7 Eos % (Auto) 1.2 Baso % (Auto) 0.6 Lymph # (Auto) 2.8 [place] # (Auto) 0.7 Eos # (Auto) 0.2 Baso # (Auto) 0.1 Abs Immat Gran (auto) 0.13 H Absolute Neuts (auto) 10.1 H Absolute Nucleated RBC 0.000 Nucleated RBC % (auto) 0.0 Sodium 146 H Potassium 4.8 Chloride 109 H Carbon Dioxide 21 L Anion Gap 21 H BUN 14 Creatinine 0.89 Estim Creat Clear Calc 131.9 Estimated GFR > 60 Random Glucose 92 Calcium 9.5 Total Bilirubin 0.2 AST 26 ALT 32 Alkaline Phosphatase 83 Total Protein 7.4 Albumin 4.4 Urine Opiates Screen Urine Fentanyl Screen Ur Barbiturates Screen Ur Phencyclidine Scrn Ur Amphetamines Screen U Benzodiazepines Scrn Urine Cocaine Screen U Marijuana (THC) Screen Ethyl Alcohol Influenza Type A (PCR) NEGATIVE Influenza Type B (PCR) NEGATIVE RSV RNA Qual (PCR) NEGATIVE SARS-CoV-2 RNA (RT-PCR) NEGATIVE 04/26/22 04/26/22 01:08 15:15 WBC RBC Hgb Hct MCV MCH MCHC RDW Plt Count MPV Immature Gran % (Auto) Neut % (Auto) Lymph % (Auto) [place] % (Auto) Eos % (Auto) Baso % (Auto) Lymph # (Auto) [place] # (Auto) Eos # (Auto) Baso # (Auto) Abs Immat Gran (auto) Absolute Neuts (auto) Absolute Nucleated RBC Nucleated RBC % (auto) Sodium Potassium Chloride Carbon Dioxide Anion Gap BUN Creatinine Estim Creat Clear Calc Estimated GFR Random Glucose Calcium Total Bilirubin AST ALT Alkaline Phosphatase Total Protein Albumin Urine Opiates Screen Not Detected Urine Fentanyl Screen POSITIVE H Ur Barbiturates Screen Not Detected Ur Phencyclidine Scrn Not Detected Ur Amphetamines Screen Not Detected U Benzodiazepines Scrn POSITIVE H Urine Cocaine Screen POSITIVE H U Marijuana (THC) Screen POSITIVE H Ethyl Alcohol 169 Influenza Type A (PCR) Influenza Type B (PCR) RSV RNA Qual (PCR) SARS-CoV-2 RNA (RT-PCR) DS: Summary Hospital Course Hospital Course: per 04/27 admission note: pt BIB police after having been on video chat with his ex- during which time he reportedly held a gun to his head and expressed SI.? he was intoxicated at the time.? his brother overdosed on opioids about one year ago this time, his has left him and taken their two children with her, he has a substance abuse problem, he has access to weapons both here and in [place], where he is from, and he also has TBI with cognitive deficits.? he reports he came to [place] to pursue surgical care in [place] for his chronic back pain with botched corrective surgeries, most recent one reportedly about 16-18 weeks ago.? he states he video-called his ex-, as described above, in order to speak with his child vickie.? he denies expressing SI or holding anything to his head.? reports he overdosed on opioids about a month ago in [place], pt describes that as a one-off event.? ex- also reports methamphetamine use, which pt denies.? also minimizes other substance use in a way that is not supported by the objective evidence and collateral information available.? pt describes 30 foot fall to concrete in 2011 resulting in TBI and chronic back pain.? reports he had no mental health Hx prior to the TBI/fall and that since he has had cognitive changes and impaired short-term memory.? he denies lability or impulsiveness, but crisis eval reports his has from him in part due to his volatility. ? pt's parents obtained a section 35 warrant which expires 05/03/22.? on interview, pt essentially denies any substantial drug problem as well as any acute mental health problems, including SI, and states he should not be in the hospital and would like to be discharged so he can attend an appointment in [place] on monday morning with back surgeon.? he is informed we will continue his home meds and put him on ativan per [facility] protocol for now. Past Psychiatric History: hosps: 1 in [place] about 10 years ago SA: denies SIB: denies currently in outpt Tx with providers in [place] no mental health Hx prior to 30 foot fall onto concrete in 2011 resulting in TBI and chronic back pain Medical Evaluation Reviewed: Yes PMFSH Narrative: 30-foot fall onto concrete in 2011 resulting in TBI and chronic back pain Family History: brother - opioids, from opioid overdose Social History: reports he is from a woman who lives in [place].? they have two children around 7-8 yo together who live with her.? 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 Substance History: in general pt's description of his substance use is quite divergent from that described by collateral sources.? he appears to be substantially under-reporting his consumption. ? alcohol - reports minimal intake, likely inaccurate. opioids - reports overdose in the past month in [place] was a one-off event, he hasn't had opioids other than as prescribed for a very long time (also likely inaccurate). benzos - states he takes them as prescribed. cocaine - reports recent cocaine use was first time in 9 years he has used it (highly unlikely) methamphetamines - denies use.? per collateral from , pt uses. Trauma History: denies, aside from traumatic fall.? he used to have intrusive thoughts and perhaps nightmares shortly after the trauma, but he denies any current Sx. Plan: 04/27: continue home meds. pursue section 35 warrant which was obtained by pt's parents. 04/28: no change in status. discharged to section 35 hearing. Time Spent with Patient Time attestation: Total time managing care of this patient today ____ minutes. Time spent: Greater than 30 minutes Discharge Plan Discharge Anticipated Discharge Date/Time: 04/28/22 10:47 Patient Disposition: Xfer Other Discharge Diagnosis: Polysubstance Use Disorder Traumatic Brain Injury Chronic Back Pain Referrals: Physician,Nonstaff [Primary Care Provider] - 1 Week Discharge Medications: New nicotine (polacrilex) 2 mg Gum 4 mg buccal Q2H PRN (Reason: Nicotine Cravings) Qty: 0 0RF nicotine 21 mg/24 hr Patch 24 Hour 21 mg transdermal DAILY Qty: 0 0RF Continued alprazolam 1 mg Tablet 1 mg PO TID PRN (Reason: Anxiety) oxycodone 5 mg Tablet 10 mg PO Q8H PRN (Reason: Breakthrough Pain, Moderate) clonidine HCl 0.1 mg Tablet 0.1 mg PO BID PRN (Reason: Anxiety) doxepin 10 mg Capsule 10 mg PO BEDTIME PRN (Reason: Insomnia) quetiapine 100 mg Tablet 100 - 200 mg PO BEDTIME PRN (Reason: Insomnia) famotidine 20 mg Tablet 20 mg PO BID ondansetron 4 mg Tablet,Disintegrating 4 mg PO Q8H PRN (Reason: Nausea) duloxetine 20 mg Capsule,Delayed Release(Dr/Ec) 20 mg PO DAILY duloxetine 60 mg Capsule,Delayed Release(Dr/Ec) 60 mg PO DAILY Discharge Orders: Discharge Order (Routine); Ordered 04/28/22 Ordered By: Jim Clifford Diet: Advance to usual diet Activity on Discharge: As tolerated Stand Alone Forms: Patient Portal Discharge page, Community Support Care Plan Goals: remain safe and sober in the outpatient treatment setting Health Concerns: chronic back pain chronic substance use disorder and associated risks Plan of Treatment: take medications as prescribed, engage in prescribed treatments Assessment: at risk of serious harm to self or others as a result of uncontrolled substance use Discharge Date/Time: 04/28/22 12:15
== END 2022-04-28 12:15 | disposition other institution (70) | DRG 882 ==
LOC: HO.ED 15:57 → HO.PADLT16 17:15
PROVIDERS: Nurse Practitioner Family; Admitting Provider Psychiatry & Neurology Psychiatry; Emergency Provider Emergency Medicine; Visit Provider Psychiatry & Neurology Psychiatry
DX: F43.25 Adjustment disorder with mixed disturbance of emotions and conduct (principal); R45.851 Suicidal ideations; F17.210 Nicotine dependence, cigarettes, uncomplicated; Y90.6 Blood alcohol level of 120-199 mg/100 ml; Z71.6 Tobacco abuse counseling; F10.129 Alcohol abuse with intoxication, unspecified; Z87.820 Personal history of traumatic brain injury; Z20.822 Contact with and (suspected) exposure to COVID-19; Z79.899 Other long term (current) drug therapy
CPT/HCPCS: 0241U; 36415; 80053; 80307; 82077; 85025; 93005; 99285; J2250

== ENCOUNTER 2022-08-31 10:19 | Outpatient (REF) | payer OTHER, SELFPAY ==
--- NOTE | ~2022-08-31 | XR_ITS ---
EXAMINATION: XR CERVICAL SPINE. XR THORACIS SPINE XR LUMBAR SPINE CLINICAL INDICATIONS: Pain. COMPARISON: None available. TECHNIQUE: Lumbar spine 3 views. Dorsal spine 2 views. Cervical spine 3 views. FINDINGS: LUMBAR SPINE: There is disc prosthesis at the L5-S1 disc level. Rest of the disc levels are normal. There is a disc prosthesis at the L5-S1 disc level. The vertebral heights, alignment and disc heights are normal. There is no visible acute fracture or dislocation seen. No lytic or sclerotic process seen. The paravertebral soft tissues are normal. DORSAL SPINE: There is maintained thoracic kyphosis. The vertebral heights, alignment and disc heights are normal. No lytic or sclerotic process seen. The paravertebral soft tissues are normal. CERVICAL SPINE: There is normal cervical lordosis. The vertebral heights, alignment and disc heights are normal. No visible acute fracture, dislocation or subluxation seen. The prevertebral and paravertebral soft tissues are normal. XR/XR lumbar spine 2-3V IMPRESSION: Unremarkable lumbar spine exam. Unremarkable dorsal spine exam. Unremarkable cervical spine exam.
--- NOTE | ~2022-08-31 | XR_ITS ---
EXAMINATION: XR CERVICAL SPINE. XR THORACIS SPINE XR LUMBAR SPINE CLINICAL INDICATIONS: Pain. COMPARISON: None available. TECHNIQUE: Lumbar spine 3 views. Dorsal spine 2 views. Cervical spine 3 views. FINDINGS: LUMBAR SPINE: There is disc prosthesis at the L5-S1 disc level. Rest of the disc levels are normal. There is a disc prosthesis at the L5-S1 disc level. The vertebral heights, alignment and disc heights are normal. There is no visible acute fracture or dislocation seen. No lytic or sclerotic process seen. The paravertebral soft tissues are normal. DORSAL SPINE: There is maintained thoracic kyphosis. The vertebral heights, alignment and disc heights are normal. No lytic or sclerotic process seen. The paravertebral soft tissues are normal. CERVICAL SPINE: There is normal cervical lordosis. The vertebral heights, alignment and disc heights are normal. No visible acute fracture, dislocation or subluxation seen. The prevertebral and paravertebral soft tissues are normal. XR/XR cervical spine 3V IMPRESSION: Unremarkable lumbar spine exam. Unremarkable dorsal spine exam. Unremarkable cervical spine exam.
--- NOTE | ~2022-08-31 | XR_ITS ---
EXAMINATION: XR CERVICAL SPINE. XR THORACIS SPINE XR LUMBAR SPINE CLINICAL INDICATIONS: Pain. COMPARISON: None available. TECHNIQUE: Lumbar spine 3 views. Dorsal spine 2 views. Cervical spine 3 views. FINDINGS: LUMBAR SPINE: There is disc prosthesis at the L5-S1 disc level. Rest of the disc levels are normal. There is a disc prosthesis at the L5-S1 disc level. The vertebral heights, alignment and disc heights are normal. There is no visible acute fracture or dislocation seen. No lytic or sclerotic process seen. The paravertebral soft tissues are normal. DORSAL SPINE: There is maintained thoracic kyphosis. The vertebral heights, alignment and disc heights are normal. No lytic or sclerotic process seen. The paravertebral soft tissues are normal. CERVICAL SPINE: There is normal cervical lordosis. The vertebral heights, alignment and disc heights are normal. No visible acute fracture, dislocation or subluxation seen. The prevertebral and paravertebral soft tissues are normal. XR/XR thoracic spine 3V IMPRESSION: Unremarkable lumbar spine exam. Unremarkable dorsal spine exam. Unremarkable cervical spine exam.
== END 2022-08-31 10:20 | disposition home or self-care (01) ==
LOC: HO.HMGCX 10:19
PROVIDERS: PCP Internal Medicine; Visit Provider Internal Medicine
DX: M54.6 Pain in thoracic spine (principal); M54.50 Low back pain, unspecified; M54.2 Cervicalgia
CPT/HCPCS: 72040; 72072; 72100

== ENCOUNTER 2022-11-21 09:47 | Outpatient (REF) | payer OTHER, MEDICAID, SELFPAY | END 2022-11-21 09:48 | disposition home or self-care (01) | LOC: HO.LNP 09:47 | PROVIDERS: PCP Internal Medicine; Referring Provider Internal Medicine; Visit Provider Surgery | DX: K64.5 Perianal venous thrombosis (principal) | CPT/HCPCS: 46320; 88304; 99202 ==

== ENCOUNTER 2022-11-21 09:47 | Outpatient (AMB) | payer OTHER, SELFPAY ==
--- NOTE | 2022-11-21 09:50 | MHC.OFFVIS ---
Intake Vital Signs 11/21/22 09:53 Height 5 ft 8 in Weight 220 lb BMI 33.4 BP 145/93 H Blood Pressure Location Rt brachial Position Sitting Pulse 79 Intake Visit Reasons: thrombosed hemorrhoid Intake Note: Patient here for thrombosed hemorrhoid. Was seen at [facility] on Monday. States hemorrhoid popped but thinks it might be growing again. Taking fiber supplements. Noticed bleeding this morning and it is very inflamed. Evidence Specialist Required: No Accompanied by: Self / Same As Patient Allergies No Known Allergies Allergy (Verified 11/21/22 09:57) HPI HPI Comments History of Present Illness Details Patient presents here with approximate 1 and half week history of thrombosed external hemorrhoid. He was seen at outside ER over the weekend and had some spontaneous drainage of clot. He presents here because of progression of symptoms. Patient otherwise has regular bowel habits although he has had bouts of constipation recently. He has no other GI issues or complaints prior to this. Chart was reviewed and patient evaluated [facility] Surgical History (Updated 11/21/22 @ 10:34 by Catalino Almodovar MD) Previous back surgery (~09/29/21) Family History (Updated 11/21/22 @ 10:02 by MICHAEL Stephens) Paternal Grandmother Stomach cancer Social History (Updated 11/21/22 @ 10:03 by MICHAEL Stephens) Household Members: Unknown / Unable to assess Household Members Other:: pt refusing to respond. Do you presently have visiting nurse or other home services: No Alcohol intake: current Alcohol intake frequency: holidays/special occasions only Patient Tobacco Use Status: Current everyday Tobacco user Cigarette Packs Per Day: 1 Cigarettes Per Day: 20.0 e-Cigarette/Vaping Use: Currently Using Second Hand Smoke Exposure: Yes Substance Use Type: Crack/Cocaine and Methamphetamine service: No Sexual orientation: Straight/Heterosexual Physical Exam Vital Signs: Last Vital Signs Pulse 79 11/21/22 09:53 BP 145/93 H 11/21/22 09:53 BMI result Body Mass Index 33.4 GI Other: Abdomen soft. Rectal exam demonstrates in prone position large thrombosed external hemorrhoid approximately 2 o'clock position. Office Procedures Excision Details: Risks, benefits, alternatives of thrombosed external hemorrhoidectomy reviewed with the patient included but not limited to bleeding, infection, recurrence, numbness, pain, scarring, incontinence and the patient was to proceed. Patient was appropriate position and underwent 1% lidocaine and Betadine prep and uneventful thrombosed external hemorrhoidectomy. Specimen sent to pathology. Wound base was cauterized using silver nitrate secured hemostasis. Dressing applied. Patient tolerated procedure well. Additional procedure code (CPT) needed (Hemorrhoidectomy) Excision Procedure code (CPT) selection complete Office Meds lidocaine-epinephrine 1 %-1:100,000 Performing Provider: Catalino Almodovar MD Administered by: Catalino Almodovar MD on 11/21/22 10:27 Dose Route Admin Location Lot Number Expiration Date NDC Green Building Energy Engineer 10 mL Infiltration lidocaine-epinephrine 1 %-1:100,000 Performing Provider: Catalino Almodovar MD Documented (not given) by: Catalino Almodovar MD on 11/21/22 10:27 Reason Not Given: No Longer Necessary Assessment & Plan Assessment & Plan (1) Thrombosed external hemorrhoids: Code(s): K64.5 - Perianal venous thrombosis Plan: Patient has been given local wound instructions including Sitz baths, stool softeners, dressing instructions, and will see me as directed or p.r.n.. He will be given a script analgesics as well. Orders: Orders AMB Excision Today K64.5 - Perianal venous thrombosis AMB Excision Today K64.5 - Perianal venous thrombosis Medications: New hydrocodone-acetaminophen 5-325 mg Partial Fill upon patient request. 1 tab PO Q4-6H PRN 30 tabs 0RF pain Coding Level of Care Code New Pt Level 4 (28877) Diagnoses Thrombosed external hemorrhoids K64.5
[2022-11-21 09:53] VITALS: BP 145/93; PULSE 79; BMI 33.4
== END 2022-11-21 10:27 | disposition home or self-care (01) ==
PROVIDERS: PCP Internal Medicine; Referring Provider Internal Medicine; Visit Provider Surgery
DX: K64.5 Perianal venous thrombosis (principal)
CPT/HCPCS: 46320; 99204; 99214

== ENCOUNTER 2022-11-28 14:17 | Outpatient (AMB) | payer OTHER, SELFPAY ==
[2022-11-28 14:25] VITALS: BP 131/88; PULSE 72
--- NOTE | 2022-11-28 14:25 | MHC.OFFVIS ---
Intake Vital Signs 11/28/22 14:25 Weight 220 lb BP 131/88 Blood Pressure Location Rt brachial Position Sitting Pulse 72 Intake Visit Reasons: 1 wk follow up thrombosed hemorrhoid Intake Note: Patient here s/p thrombosed hemorrhoiectomy. Patient still taking rx pain meds as needed. Denies constipation. Fiber diet helping. Bleedig with BM has subsided. Collet Driller Required: No Accompanied by: Self / Same As Patient Allergies No Known Allergies Allergy (Verified 11/28/22 14:27) HPI HPI Comments History of Present Illness Details Status post almost hemorrhoidectomy. Patient doing well. His wound discomfort has markedly improved. He is tolerating a diet present normal bowel habits. He is taking stool softeners. He is undergoing local wound care. [facility] Surgical History Previous back surgery (~09/29/21) Family History Paternal Grandmother Stomach cancer Social History Household Members: Unknown / Unable to assess Household Members Other:: pt refusing to respond. Do you presently have visiting nurse or other home services: No Alcohol intake: current Alcohol intake frequency: holidays/special occasions only Patient Tobacco Use Status: Current everyday Tobacco user Cigarette Packs Per Day: 1 Cigarettes Per Day: 20.0 e-Cigarette/Vaping Use: Currently Using Second Hand Smoke Exposure: Yes Substance Use Type: Crack/Cocaine and Methamphetamine service: No Sexual orientation: Straight/Heterosexual Physical Exam Vital Signs: Last Vital Signs Pulse 72 11/28/22 14:25 BP 131/88 11/28/22 14:25 GI Other: Hemorrhoidal wound base is healing uneventfully. Assessment & Plan Assessment & Plan (1) Thrombosed external hemorrhoids: Code(s): K64.5 - Perianal venous thrombosis Plan Patient has been given local wound instructions, and will follow-up p.r.n. Coding Level of Care Code Global (01162) Diagnoses Thrombosed external hemorrhoids K64.5
== END 2022-11-28 14:31 | disposition home or self-care (01) ==
PROVIDERS: PCP Internal Medicine; Visit Provider Surgery
DX: K64.5 Perianal venous thrombosis (principal)
CPT/HCPCS: 46320; 99024

== ENCOUNTER → 2022-11-28 14:17 | Outpatient (BNVA) | payer OTHER, SELFPAY | PROVIDERS: PCP Internal Medicine; Visit Provider Surgery | DX: K64.5 Perianal venous thrombosis (principal); Z48.01 Encounter for change or removal of surgical wound dressing | CPT/HCPCS: 46320 ==

== ENCOUNTER 2023-01-24 12:54 | Outpatient (AMB) | payer OTHER, MEDICAID, SELFPAY ==
--- NOTE | 2023-01-24 13:06 | A.SPINEOV_ITS ---
Intake Intake Visit Reasons: back pain/second opinion Intake Note: Mr. Aragon is here today for a 2nd opinion regarding low back pain. MRI done @ [facility]/brought disc. Practice Support Specialist Required: No Allergies No Known Allergies Allergy (Verified 11/28/22 14:27) Assessment & Plan Assessment & Plan (1) Back pain: Code(s): M54.9 - Dorsalgia, unspecified Plan This is a very nice 37-year-old gentleman who is self-referred for 2nd opinion today. The patient had a fall in 2010 where he fell off a roof and injured himself significantly. He sustained thoracic compression fractures as well as an injury to his back causing pain going down his legs. The pain starts in his low back and goes down to his calves into his feet with numbness of his big toes. He underwent numerous rounds of conservative treatment including physical therapy, acupuncture and cortisone injections. None of these things helped. He also underwent just last year a left L5-S1 decompression with placement of a small metallic device inside the disc called Barricaid. Apparently this device is meant to prevent recurrent disc herniations. This did not help either. In fact he thinks it only made things worse. He tells me that he has pain pretty much from the moment he gets up in the morning. He will start with the stretching routine in the morning and then slowly go on with his day. He has been on chronic narcotics for many years to help deal with these issues. He is on disability as well. By 2-3 o'clock in the afternoon he tells me that he has had too much pain and has to put his feet up. The symptoms are not necessarily connected with activity per se, they can be present even at rest. He has an MRI with him today showing disc degeneration in his lumbar spine and wishes to have it reviewed. More recently his primary care physician started him on Lyrica and that does seem to be helping. PMH: Hypertension, opioid dependence, traumatic brain injury Social hx: He smokes marijuana every evening and also smokes a few cigarettes a day Medications: Pregabalin, alprazolam, trazodone, ibuprofen, losartan, oxycodone, sertraline Allergies: None Physical exam: Strength is normal, reflexes are normal, no Brianna sign. Imaging review: He has a thoracic MRI done in August of 2022 showing multiple healed compression fractures in the thoracic spine. His lumbar MRI done shows very mild disc degeneration at L4-5 and moderate disc collapse at L5-S1. There is a laminotomy defect at L5-S1 on the left There is a metallic device in the left side of the interbody intradiscal space at L5-S1. There is enhancing granulation tissue around the operative site at L5-S1. I do not see any evidence of nerve compression anywhere in the lumbar spine. Impression: This is a 37-year-old gentleman who is self-referred today for 2nd opinion. There is a surgeon in [place] who wants to do an L4-5 and L5-S1 interbody fusion on him for back pain and bilateral leg pain. His story began with a fall off a roof for which he sustained multiple traumas including thoracic compression fractures, traumatic brain injury as well as the current set of symptoms he has now with back pain and bilateral leg pain. He has never received any significant improvement through any conservative therapies. He even underwent a decompression of the nerves at L5-S1 last year and this study on MRI shows no recurrent compression of the nerves yet he tells me that not only did not help but it made things worse. His symptoms are not necessarily mechanical in nature and can be present throughout the whole day even with if he is not being active. He remains on chronic narcotics long-term to try to deal with these pains. All of these things in the addition to the fact that this all began after trauma tells me that there is likely nerve damage related to the trauma and that he is unlikely to see significant improvement from a 2 level fusion. In fact I am not sure why they are fusing the L4-5 disc as it is only mildly degenerative. I urged him to use caution with proceeding with the surger y. In fact, I told him I think he would be a good candidate for spinal cord stimulator as a reasonable alternative. I will send him to see Dr. Garcia. Thank you for allowing us to care for your patient. The total time spent with this visit with this patient was 45 minutes reviewing history, physical exam, lumbar and thoracic imaging review, and implementation of treatment plan or further diagnostic testing Srinath Monzon MD,PhD [facility] Orders: Referrals Physiatry Referral M54.9 - Dorsalgia, unspecified Coding Level of Care Code New Pt Level 4 (44938) Diagnoses Back pain M54.9
== END 2023-01-24 13:51 | disposition home or self-care (01) ==
PROVIDERS: PCP Internal Medicine; Visit Provider Physician Assistant
DX: M54.9 Dorsalgia, unspecified (principal)
CPT/HCPCS: 99204

== ENCOUNTER → 2023-01-24 12:54 | Outpatient (BNVA) | payer OTHER, MEDICAID, SELFPAY | PROVIDERS: PCP Internal Medicine; Visit Provider Physician Assistant ==

== ENCOUNTER 2023-02-13 14:52 | Outpatient (AMB) | payer OTHER, MEDICAID, SELFPAY ==
[2023-02-13 14:54] VITALS: PULSE 72; RESP 14; O2SAT 97; BMI 34.8
--- NOTE | 2023-02-13 14:54 | A.OFFVIS_ITS ---
Intake Vital Signs 02/13/23 14:54 Height 5 ft 8 in Weight 229 lb BMI 34.8 Blood Pressure Location Lt brachial Position Sitting Respiration 14 Pulse 72 Pulse Source Pulse Oximeter Pulse Oximetry (%) 97 Oxygen Delivery Method Room Air Intake Visit Reasons: back/leg pain after trauma Allergies No Known Allergies Allergy (Verified 02/13/23 14:56) Medication List - Last Reconciled 02/13/23 by Cynthia Gordillo LPN alprazolam 1 mg PO TID PRN ibuprofen 800 mg PO TID metoprolol succinate ER 50 mg PO BID nicotine (polacrilex) 4 mg buccal Q2H PRN oxycodone 10 mg PO .Q4 PRN pregabalin 300 mg PO BID sertraline 50 mg PO DAILY trazodone 100 mg PO BID HPI back/leg pain after trauma HPI Details 37-year-old male who presents today to t he office for an evaluation of back and leg pain post trauma. The patient had a fall in 2010 when he fell off a roof and severely hurt himself. He had thoracic compression fractures as well as a back injury that caused pain to travel down his legs. His low back and leg pain is described as 10/10 in intensity. He has midback pain and rates at 10/10 in intensity from multiple thoracic compression fractures, but his low back and leg pain is more bothersome. The pain starts in his low back and extends to his calves and feet, with numbness in his big toes. He reports having constant pins and needles in his foot and hands. He reports pain when sleeping on his sides, especially on the left. He has started taking pregabalin with some relief. He tried conservative treatments, including physical therapy, acupuncture, and cortisone injections, but none worked. In 2021 in [place], he also had a left L5- S1 decompression with the installation of a small metallic device into the disc called Barricaid, which did not help. He will begin his day with stretching and then gradually go through the day. He has been on narcotics for a long time. He is also on disability. He has tried epidural steroid injection. He has tried physical therapy in the past with no relief. He states that he feels a pinching and stabbing sensation from the metal device placed in his back and wants to get it completely removed. [facility] Surgical History Previous back surgery (~09/29/21) Family History Paternal Grandmother Stomach cancer Social History Household Members: Unknown / Unable to assess Household Members Other:: pt refusing to respond. Do you presently have visiting nurse or other home services: No Alcohol intake: current Alcohol intake frequency: holidays/special occasions only Patient Tobacco Use Status: Current everyday Tobacco user Cigarette Packs Per Day: 1 Cigarettes Per Day: 20.0 e-Cigarette/Vaping Use: Currently Using Second Hand Smoke Exposure: Yes Substance Use Type: Crack/Cocaine and Methamphetamine service: No Sexual orientation: Straight/Heterosexual Review of Systems Const All systems reviewed & are unremarkable except as noted in HPI and below Physical Exam Vital Signs: Last Vital Signs Pulse 72 02/13/23 14:54 Resp 14 02/13/23 14:54 Pulse Ox 97 02/13/23 14:54 Oxygen Delivery Method Room Air 02/13/23 14:54 BMI result Body Mass Index 34.8 General: Appears afebrile. Alert and oriented. Mood and affect appropriate. Follows and participates in conversation appropriately. Respiratory effort is unlabored. Able to transition from sit to stand unassisted. Ambulates with bilaterally normal heel strike and toe off. Results Reviewed Results Reviewed: 08/31/22: XR CERVICAL SPINE. XR THORACIS SPINE, XR LUMBAR SPINE FINDINGS: LUMBAR SPINE: There is disc prosthesis at the L5-S1 disc level. Rest of the disc levels are normal. There is a disc prosthesis at the L5-S1 disc level. The vertebral heights, alignment and disc heights are normal. There is no visible acute fracture or dislocation seen. No lytic or sclerotic process seen. The paravertebral soft tissues are normal. DORSAL SPINE: There is maintained thoracic kyphosis. The vertebral heights, alignment and disc heights are normal. No lytic or sclerotic process seen. The paravertebral soft tissues are normal. CERVICAL SPINE: There is normal cervical lordosis. The vertebral heights, alignment and disc heights are normal. No visible acute fracture, dislocation or subluxation seen. The prevertebral and paravertebral soft tissues are normal. IMPRESSION: Unremarkable lumbar spine exam. Unremarkable dorsal spine exam. Unremarkable cervical spine exam. Assessment & Plan Assessment & Plan (1) Post laminectomy syndrome: Code(s): M96.1 - Postlaminectomy syndrome, not elsewhere classified Plan I will place a referral for psychology clearance. Once we have received psychology clearance, we will plan for a trial of a spinal cord stimulator. The patient will receive a call from [facility] for the psychology assessment. I discussed the risks and benefits of a spinal cord stimulation implant. The patient also had questions about whether to pursue lumbar fusion surgery; based on the description of his imaging, I do not think he would benefit from it, though that assessment can only truly made after reviewing the images. I recommended trying swimming and gentle stretching exercises at home in the meanwhile for symptomatic relief. Scribed for Dr. Garcia by Naeem De Luna, medical accounting clerk, on 02/13/2023. I, Dr. Garcia, have personally reviewed and agree with the information entered by the scribe. Coding Level of Care Code New Pt Level 4 (36417) Diagnoses Post laminectomy syndrome M96.1
== END 2023-02-13 15:23 | disposition home or self-care (01) ==
PROVIDERS: PCP Internal Medicine; Visit Provider Internal Medicine
DX: M96.1 Postlaminectomy syndrome, not elsewhere classified (principal)
CPT/HCPCS: 99204; 99214

== ENCOUNTER → 2023-02-13 14:52 | Outpatient (BNVA) | payer OTHER, MEDICAID, SELFPAY | PROVIDERS: PCP Internal Medicine; Visit Provider Internal Medicine ==

== ENCOUNTER 2023-08-23 10:59 | Outpatient (REF) | payer OTHER, SELFPAY ==
--- NOTE | ~2023-08-23 | CT_ITS ---
EXAMINATION: CT HEAD WITHOUT CONTRAST CLINICAL INFORMATION: Hemorrhage COMPARISON: MRI brain on 08/25/2011 TECHNIQUE: Contiguous axial imaging was performed from the skull base to vertex without intravenous administration of contrast. This CT examination was performed using dose optimization techniques as appropriate, variously including the following: *Automated exposure control *Adjustment of mA and/or kV according to patient size (this includes techniques or standardized protocols for targeted exams where dose is matched to indication/reason for exam; i.e. extremities or head) *Use of iterative reconstruction technique DLP: 823 mGy-cm FINDINGS: Ventricles, sulci and cisterns are dilated for the patient's age. There is no midline shift, no abnormal intra- or extra- axial fluid accumulation. Tompkins and white matter differentiation is normal. Bone window images show no evidence of skull fracture. CT/CT head/brain wo IV con IMPRESSION: 1. Mild Atrophic appearance of brain more than expected for the patient's age. 2. No intracranial hemorrhage or skull fracture is seen. 3. No evidence of space occupying lesion could be found. 4. The current plain CT scan of the brain shows no diagnostic evidence of acute cerebral infarction.
== END 2023-08-23 11:00 | disposition home or self-care (01) ==
LOC: HO.CT 10:59
PROVIDERS: PCP Internal Medicine; Visit Provider Internal Medicine
DX: R58 Hemorrhage, not elsewhere classified (principal)
CPT/HCPCS: 70450

== ENCOUNTER → 2025-01-02 13:30 | Outpatient (AMB) | payer MEDICAID, SELFPAY ==
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
--- OUTSIDE RECORDS SUMMARY | 2025-01-02 14:46 | XMS_ITS | Encounter Summary ---
Author Organization [facility] Address [address] [address] Phone Care Team Providers Care Water Filter Cleaner Name Role Phone Pcp, Unknown Primary Care Provider Unavailabl e Encounter Details Date Type Department Care Team (Late st Contact Info) Description 06/27/2022 Procedure Pass [facility], Ct Scan - [address] [address] Social History Tobacco Use Types Packs/Day Years Used Date Smoking Tobacco: Every Day Cigarettes 1 10 Smokeless Tobacco: Never Sex and Gender Information Value Date Recorded Sex Assigned at Not on file Legal Sex Male 9:11 PM EDT Gender Identity Not on file Sexual Orientation Not on file documented as of this encounter Plan of Treatment Not on file documented as of this encounter Visit Diagnoses Not on filedocumented in this encounter Additional Health Concerns Infection Onset Date Last Indicated Resolved Time CoV-Exposed 06/29/2022 06/29/2022 07/04/2022 1:22 AM EST documented as of this encounter Care Teams Water Filter Cleaner Relationship Specialty Start Date End Date Pcp, Unknown PCP - General 06/24/22 documented as of this encounter Additional Source Comments The information contained in this document represents components of the legal health record. It is not the complete legal health record.[facility]
--- OUTSIDE RECORDS SUMMARY | 2025-01-02 14:46 | XMS_ITS | Clinical Summary ---
Author Organization [facility] Address [address] [place] [address] Care Team Providers Care High Energy Forming Equipment Operator Name Role Phone Unavailable Primary Care Provider Unavailabl e Social History Tobacco Use Types Packs/Day Years Used Date Smoking Tobacco: Never Assessed Sex and Gender Information Value Date Recorded Sex Assigned at Not on file Legal Sex Male 9:03 AM EDT Gender Identity Not on file Sexual Orientation Not on file Plan of Treatment Health Maintenance Due Date Last Done Comments Hepatitis C Virus Screening 1986 HIV Screening 08/30/1999 DTaP/Tdap/Td Vaccines (1 - Tdap) 2005 Hepatitis B Vaccines (1 of 3 - 19+ 3-dose series) 2005 HPV Vaccines (1 - 3-dose SCD M series) 2013 COVID-19 Vaccine (2023-2 5 season) 2023 Pneumococcal Vaccine: Pediat lissy (0-5 Years) and At-Risk Patients (6 to 49 Years) Aged Out No longer eligible b ased on patient's age to complete this topic
--- OUTSIDE RECORDS SUMMARY | 2025-01-02 14:46 | XMS_ITS | Clinical Summary ---
Author Organization [facility] Address [address] [place] [phone] Phone Care Team Providers Care Dag Coater Name Role Phone Pcp, Unknown Primary Care Provider Unavailabl e Allergies No known active allergies Medications * This document contains information received from the source organization and may not represent a complete record from that organization. ibuprofen (ADVIL,MOTRIN) 600 MG tablet Take 600 mg by mouth every 8 (eight) hours as needed for pain (specific location in comments). 05/06/2022 Active oxyCODONE 5 MG immediate release tablet Take by mouth. 2 tablets by mouth every 8 hours for pain maximum of 6 tablets a day. 06/13/2022 Active ALPRAZolam (XANAX) 1 MG tablet Take 1 tablet (1 mg total) by mouth 3 (three) times a day. 45 tablet 06/30/2022 Active nicotine (NICODERM CQ) 21 mg/[address] 1 patch onto the skin daily. 28 patch 07/01/2022 Active nicotine polacrilex (NICORETTE) [address] 1 each (4 mg total) inside cheek every hour as needed for smoking cessation. 100 each 06/30/2022 Active sertraline (ZOLOFT) 50 MG tablet Take 1 tablet (50 mg total) by mouth daily. 15 tablet 07/01/2022 Active traZODone (DESYREL) 100 MG tablet Take 1 tablet (100 mg total) by mouth nightly at bedtime. 15 tablet 06/30/2022 Active Active Problems Problem Noted Date Diagnosed Date Unspecified mood (affective) disorder 06/26/2022 Anxiety 06/24/2022 Social History Tobacco Use Types Packs/Day Years Used Date Smoking Tobacco: Every Day Cigarettes 1 10 Smokeless Tobacco: Never Tobacco Cessation:Ready to Q uit: Not Asked; Counseling Given: Not Answered Education Answer Date Recorded Are you interested in more education? Not on bety e 08/26/2022 Are you concerned about learning? Not on file 08/26/2022 No 08/26/2022 No 08/26/2022 Digital Access Answer Date Recorded No 09/26/2022 No 09/26/2022 Reliable internet access at home? Not on file 09/26/2022 Device with a working camera? Not on file Intimate Partner Violence Answer Date R ecorded Are you denied basic needs s uch as food, clothing, or medical care? No 11/19/2022 In the past 12 months have y ou been in a relationship with a person who hurts, threatens, or tries to control you? No 11/19/2022 Are you denied basic needs s uch as food, clothing, or medical care? No 11/19/2022 In the past 12 months have y ou been in a relationship with a person who hurts, threatens, or tries to control you? No 11/19/2022 Sex and Gender Information Value Date Recorded Sex Assigned at Not on file Legal Sex Male 9:11 PM EDT Gender Identity Not on file Sexual Orientation Not on file Last Filed Vital Signs Vital Sign Reading Time Taken Comments Blood Pressure 120/80 11/19/2022 12:42 PM EDT Pulse 74 11/19/2022 12:42 PM EDT Temperature 36.4 C (97.5 F) 11/19/2022 10:22 AM EDT Respiratory Rate 18 11/19/2022 12:42 PM EDT Oxygen Saturation 97% 11/19/2022 12:42 PM EDT Inhaled Oxygen Concentration - - Weight 99.8 kg (220 lb) 11/19/2022 10:22 AM EDT Height 175.3 cm (5' 9 ) 11/19/2022 10:22 AM EDT Body Mass Index 32.49 11/19/2022 10:22 AM EDT Plan of Treatment Health Maintenance Due Date Last Done Comments Adult Td,Tdap Booster 1986 DEPRESSION SCREENING 1998 SMOKING Hx and SMOKELESS TOBACCO SCREENING 08/30/1999 HEPATITIS C SCREENING 2004 HIV ONE-TIME SCREENING (18-6 5 YEARS) 2004 PNEUMOCOCCAL VACCINES (0-49 years) (1 of 2 - PCV) 2005 INFLUENZA VACCINE (#1) 2024 1, 04/30/2009 COVID-19 VACCINE (1 - 2023-2 5 season) 2024 SCREENING FOR DIABETES 11/19/2025 3, 06/27/2022 LIPID PANEL 06/27/2027 06/27/2022 HEPATITIS A VACCINES Aged Out No long er eligible based on patient's age to complete this topic HIB VACCINES Aged Out No longer eligi ble based on patient's age to complete this topic MENINGOCOCCAL VACCINES (ACWY) Aged Out No longer eligible based on patient's age to complete this topic MENINGOCOCCAL VACCINES (B) Aged Out N o longer eligible based on patient's age to complete this topic Medical Devices Not on file Procedures Procedure Name Priority Date/Time Associated Diagnosis Comments LIPID PANEL Routine 06/27/2022 6:34 AM EST from Last 3 Months or Most Recently Relevant to Health Maintenance Results * (ABNORMAL) Lipid panel (06/27/2022 6:34 AM EST) HDL 61 mg/dL [facility] Comment: Interpretation <40 mg/dL: Low HDL cholesterol (major risk factor for CHD) Greater than or equal to 60 mg/dL: High HDL cholesterol ( negative risk factor for CHD) HDL - cholesterol is affected by a number of factors, e.g. smoking, excerise, hormones, sex and age. CHOLESTEROL 180 0 - 240 mg/dL [facility] TRIGLYCERIDES 195(H) 30 - 160 mg/dL [facility] LDL 80 50 - 129 mg/dL [facility] Comment: LDL levels in terms of risk for coronary heart disease: <100 mg/dL: Optimal 100-129 mg/dL: Near or above optimal 130-159 mg/dL: Borderline high 160-189 mg/dL: High >190 mg/dL: Very High CARDIAC RISK RATIO 3.0(L) 3.4 - 5.0 [facility] Blood 06/27/2022 6:34 AM EST 06/27/2022 6:49 AM EST Rodolfo Porter PMHNP-BC LAB BLOOD ORDERAB LES Final Result [facility] [address] [place] [address] from Last 3 Months or Most Recently Relevant to Health Maintenance [facility] Member Subscriber Plan / Payer (Ef fective 2021-Present) Name:Michele Aragon Relation to Subscriber:Self Name:Michele Aragon Payer ID:Not on file Group ID:Not on file Type:Medicare Address: [place] [id number] [place] [facility] MEDICARE REPLACEMENT Member Subscriber Plan / Payer (Ef fective 2021-) Name:Michele Aragon Relation to Subscriber:Self Name:Michele Aragon Payer ID:Not on file Group ID:Not on file Type:Medicare Address: [place] [id number] [place] [facility] MEDICARE REPLACEMENT [facility] MED[facility]PL[facility]PL[facility] Advance Directives For more information, please contact: [phone] (9AM - 5PM [facility], Monday-Monday) * Full Code (Latest Code Status on File) Date Activated Date Inactivated Comments 06/26/2022 2:13 PM Question Answer Comments Code Status Confirmed With: Patient Care Teams Dag Coater Relationship Specialty Start Date End Date Pcp, Unknown PCP - General 06/24/22 Additional Source Comments The information contained in this document represents components of the legal health record. It is not the complete legal health record.[facility]
== END ==
LOC: HO.HMCHD 13:31
PROVIDERS: PCP Internal Medicine; Visit Provider Student in an Organized Health Care Education/Training Program
DX: F32.A Depression, unspecified (principal)

== ENCOUNTER 2025-01-07 14:04 | Outpatient (AMB) | payer MEDICAID, SELFPAY ==
--- NOTE | 2025-01-07 08:14 | MHC.PC.OV ---
Vital Signs 01/07/25 14:16 Height 5 ft 8 in Weight 233 lb BMI 35.4 BP 138/82 Blood Pressure Location Rt brachial Position Sitting Pulse 100 Pulse Source Pulse Oximeter Temp 97.1 F Temp Source Temporal Artery Scan Pulse Oximetry (%) 99 Oxygen Delivery Method Room Air Intake Visit Reasons: New patient Patient Relations Representative Required: No Accompanied by: Self / Same As Patient Allergies No Known Allergies Allergy (Verified 01/07/25 08:15) Medication List - Last Reconciled 01/13/25 by FALGUNI Wheeler alprazolam 1 mg PO BID dextroamphetamine-amphetamine 10 mg ER (Adderall XR) 10 mg PO DAILY furosemide 40 mg PO BID ibuprofen 800 mg PO TID losartan 50 mg PO BID metoprolol succinate ER 50 mg PO BID nicotine (polacrilex) 4 mg buccal Q2H PRN oxycodone 10 mg PO TID PRN pregabalin (Lyrica) 200 mg PO BID sertraline 50 mg PO DAILY Tobacco use date assessed: 01/07/25 Dental Screening Dental Screen Date: 01/07/25 Did you have a dental visit in the last 12 months?: No Did you have a dental problem in the last 6 months where you did not have access to dental care?: No HPI HPI Comments History of Present Illness Details The patient is a 39-year-old male with ADHD, Anxiety, HTN and chronic low back pain presenting to establish care and medication management issues. The patient has a history of chronic back pain, which began after a back injury in 2009. He underwent surgery in [place] where metal brackets, known as barricades, were placed in his back, but the procedure was unsuccessful, leading to increased pain due to bone growth around the metal. The patient reports that the pain is severe and persistent, requiring high doses of oxycodone since 2009 to manage the symptoms, He has been getting 180 5mg Oxycodone monthly, although it only minimally alleviates the pain. He is also on Lyrica 300 mg BID for his pain with some relief The patient also experiences anxiety, particularly concerning the management of his chronic pain and the potential reduction of his pain medication. He has been taking Alprazolam 1mg TID. He expresses concern about the impact of his medication regimen on his quality of life and the potential for increased pain if his medication is reduced. He is also on Sertraline 25mg daily. The patient has been diagnosed with hypertension, for which he is taking losartan, metoprolol and furosemide. He is unsure about the reason for the high dose of furosemide and reports no fluid retention or swelling. His BP today was 138/82. The patient has a history of Attention Deficit Hyperactivity Disorder (ADHD) diagnosed in childhood, for which he is prescribed Adderall. He is concerned about the potential discontinuation of this medication and is advised to consult with a psychiatrist for further management. [facility] Medical History (Updated 01/13/25 @ 07:31 by FALGUNI Wheeler) ADHD (attention deficit hyperactivity disorder) Anxiety Chronic back pain Depression Health care maintenance Hypertension Medication management Surgical History Previous back surgery (~09/29/21) Family History (Updated 01/07/25 @ 14:22 by Raven Meraz MA) Paternal Grandmother Stomach cancer Mother No problems noted. Father No problems noted. Social History Household Members: Unknown / Unable to assess Household Members Other:: pt refusing to respond. Housing: Homeless Do you presently have visiting nurse or other home services: No Alcohol intake: current Alcohol intake frequency: holidays/special occasions only Patient Tobacco Use Status: Current everyday Tobacco user (pt only vaping) Cigarette Packs Per Day: 1 Cigarettes Per Day: 20.0 e-Cigarette/Vaping Use: Currently Using (vaping use) Second Hand Smoke Exposure: No Substance Use Type: Crack/Cocaine and Methamphetamine service: No Current occupational status: disabled Sexual orientation: Straight/Heterosexual Cognitive needs: No Hearing needs: No Vision needs: No Questionnaire PHQ-9 Over the last 2 weeks, how often have you been bothered by any of the following problems? 1. Little interest or pleasure in doing things: not at all 2. Feeling down, depressed, or hopeless: nearly every day 3. Trouble falling or staying asleep, or sleeping too much: nearly every day 4. Feeling tired or having little energy: nearly every day 5. Poor appetite or overeating: not at all 6. Feeling bad about yourself - or that you are a failure or have let yourself or your family down: not at all 7. Trouble concentrating on things, such as reading the newspaper or watching television: not at all 8. Moving or speaking so slowly that other people could have noticed. Or the opposite - being so fidgety or restless that you have been moving around a lot more than usual: not at all 9. Thoughts that you would be better off or of hurting yourself in some way: not at all Total score: 9 Source: Developed by Drs. Gianni Winn, Mikaela Campo, Javier Powers and colleagues, with an educational armida from [employer]. Thrive Questionnaire Date Thrive assessed: 01/07/25 I am a: Patient Within the past 12 months, did the food you bought not last and you didn't have the money to get more?: Never true Within the past 12 months, did you worry whether your food would run out before you got money to buy more?: Never true Do you have trouble paying for medicines?: No Do you have trouble getting transportation to medical appointments?: No Do you have trouble paying your heating and electricity bill?: No Do you have trouble taking care of your child, family member or friend?: No Do you have trouble with day-to-day activities such as bathing, preparing meals, shopping, managing finances, etc.?: No Are you currently unemployed and looking for a job?: No Are you interested in more education?: No THRIVE Score: 0 AUDIT C Alcohol Use Questionnaire (AUDIT-C) 1. How often do you have a drink containing alcohol?: Never 3. How often do you have six or more drinks on one occasion?: Never Total Score: 0 WILL-7 AMB Questionnaire WILL-7 Date WILL - 7 assessed: 01/07/25 Feeling nervous, anxious, or on edge: 3 = Nearly every day Not being able to stop or control worryin = Not at all Worrying too much about different things: 0 = Not at all Trouble relaxin = Not at all Being so restless that it is hard to sit still: 0 = Not at all Becoming easily annoyed or irritable: 0 = Not at all Feeling afraid as if something awful might happen: 0 = Not at all Total WILL-7 score (0-4 normal; 5-9 mild; 10-14 moderate; 15-21 severe): 3 Source: Developed by Drs. Gianni Winn, Mikaela Campo, Javier Powers and colleagues, with an educational armida from [employer]. Review of Systems Const Details: CONSTITUTIONAL Negative HEAD/NECK Negative EAR/NOSE/MOUTH/THROAT Negative RESPIRATORY Negative CARDIOVASCULAR Denies fluid retention or swelling GASTROINTESTINAL Negative MUSCULOSKELETAL Low back pain Reports chronic back pain since 2009, worsened by previous surgery NEUROLOGICAL Negative PSYCHIATRIC Reports anxiety related to chronic pain management and medication use Physical exam (Primary Care) Vital Signs: Last Vital Signs Temp 97.1 F 01/07/25 14:16 Pulse 100 01/07/25 14:16 BP 138/82 01/07/25 14:16 Pulse Ox 99 01/07/25 14:16 Oxygen Delivery Method Room Air 01/07/25 14:16 BMI result Body Mass Index 35.4 GENERAL Well developed, obese, in no apparent distress HEENT Head-Normocephalic Eyes- PERRLA, EOMI, Conjuctiva clear, lids WNL Ears- Canals clear, TMs WNL Mouth/Throat-No lesions, no erythema, no exudate Neck- Supple, No lymphadenopathy, thyroid WNL RESPIRATORY Normal I:E, Clear to auscultation CARDIOVASCULAR Regular, rate and rhythm, No murmurs or rubs GASTROINTESTINAL Soft, nontender, normal bowel sounds, no masses MUSCULOSKELETAL Back-Decreased ROM, Tender in Lumbar, Tender with motion, Straight leg raise Positive, DTR 2+ symmetrical, Gait normal NEUROLOGICAL Gait normal PSYCHIATRIC Oriented to person, place and time Mood and affect anxious Appearance WNL Speech WNL Thought processes WNL Tobacco/Smoking Status: Tobacco use Status Tobacco use date assessed 01/07/25 01/07/25 08:17 Patient Tobacco Use Status Current everyday Tobacco (pt 01/07/25 14:23 only vaping) Tobacco use type 11/21/22 10:25 e-Cigarette/Vaping Use Currently Using (vaping use) 01/07/25 14:23 PHQ-9: PHQ-9 Score PHQ-9: Total score 9 01/07/25 14:32 Thrive Assessment: Date of Thrive Assessment Date Thrive assessed 01/07/25 01/07/25 08:17 Coding Level of Care Code New Pt New Pt Level 4 (84879) Patient Type New Diagnoses Primary hypertension I10 Hypertension type: primary hypertension Chronic back pain M54.9; G89.29 Anxiety F41.9 ADHD (attention deficit hyperactivity disorder) F90.9 Time Spent (min) 40 Comment Time spent on chart review, H&P, Patient education, Placing orders and documentation Assessment & Plan Assessment & Plan (1) Hypertension: Comment: BP today was 138/82 Code(s): I10 - Essential (primary) hypertension Category: Medical Qualifiers: Hypertension type: primary hypertension Qualified Code(s): I10 - Essential (primary) hypertension Plan: The patient's antihypertensive regimen will be reviewed, particularly the high dose of furosemide, to ensure appropriate management of hypertension without unnecessary medication. Will continue Losartan and Metoprolol and decrease Furosemide to daily dosing. Patient to follow up in 6 weeks or sooner if symptoms persist or worsen. (2) Chronic back pain: Code(s): M54.9 - Dorsalgia, unspecified; G89.29 - Other chronic pain Category: Medical Plan: The patient will be referred to a pain specialist to explore alternative pain management options, including potential surgical interventions, given the limited efficacy of current medication regimens. The current dosage of oxycodone will be adjusted to 10 mg TID to reduce the number of pills consumed daily while maintaining the same overall dosage. Patient to follow up in 6 weeks or sooner if symptoms persist or worsen. (3) Anxiety: Code(s): F41.9 - Anxiety disorder, unspecified Category: Medical Plan: The patient will be referred to a psychiatrist for evaluation and management of anxiety, particularly in relation to chronic pain and medication use. Will increase Sertraline to 50mg daily. Will decrease Alprazolam to 1mg BID. Patient to follow up in 6 weeks or sooner if symptoms persist or worsen. (4) ADHD (attention deficit hyperactivity disorder): Code(s): F90.9 - Attention-deficit hyperactivity disorder, unspecified type Category: Medical Plan: The patient will be referred to a psychiatrist to discuss the continuation and management of Adderall for ADHD, with consideration for a potential reduction in dosage. Medication refilled today. Patient to follow up in 6 weeks or sooner if symptoms persist or worsen. Plan I discussed with the patient the need to adjust his current medication regimen, particularly the high doses of oxycodone and Lyrica, to safer levels while maintaining pain control. We also talked about the importance of consulting with a pain specialist and psychiatrist to explore alternative treatments and manage his anxiety and ADHD medications appropriately. The patient was informed about the potential risks of long-term high-dose opioid use and the need for regular follow-up to monitor his condition and medication efficacy. Orders: Orders Complete Blood Count Auto Diff 01/07/25 Z00.00 - Encounter for general adult medical examination without abnormal findings, Z79.899 - Other vermin exterminator (current) drug therapy Comprehensive Met. Panel 01/07/25 F19.20 - Other psychoactive substance dependence, uncomplicated, Z00.00 - Encounter for general adult medical examination without abnormal findings, Z79.899 - Other fdc (current) drug therapy TSH reflex Free T4 01/07/25 Z00.00 - Encounter for general adult medical examination without abnormal findings, Z79.899 - Other fdc (current) drug therapy Referrals Psychiatry Referral F41.9 - Anxiety disorder, unspecified, F90.9 - Attention-deficit hyperactivity disorder, unspecified type Pain Management Referral G89.29 - Other chronic pain, M54.9 - Dorsalgia, unspecified, M96.1 - Postlaminectomy syndrome, not elsewhere classified Medications: New dextroamphetamine-amphetamine 10 mg ER (Adderall XR) Partial Fill upon patient request. 10 mg PO DAILY 30 caps 0RF oxycodone Partial Fill upon patient request. 10 mg PO TID PRN 90 tabs 0RF pain alprazolam 1 mg PO BID 60 tabs 0RF anxiety pregabalin (Lyrica) 200 mg PO BID 60 caps 0RF chronic pain sertraline 50 mg PO DAILY 90 tabs 0RF Refilled losartan 50 mg PO BID 180 tabs 1RF furosemide 40 mg PO BID 180 tabs 1RF ibuprofen 800 mg PO TID 90 tabs 1RF metoprolol succinate ER 50 mg PO BID 180 tabs 1RF Discontinued alprazolam Discontinued Reason: Doctor's Order 1 mg PO TID PRN 90 tabs 0RF Anxiety sertraline Discontinued Reason: Doctor's Order 25 mg PO DAILY 90 tabs 1RF oxycodone Discontinued Reason: Doctor's Order 10 mg (2 x 5 mg) PO .every 4-6 hours 30 days PRN 180 tabs 0RF Breakthrough Pain, Moderate M96.1 - Postlaminectomy syndrome, not elsewhere classified pregabalin Discontinued Reason: Doctor's Order 300 mg PO BID 180 caps 1RF dextroamphetamine sulfate ER Partial Fill upon patient request. Discontinued Reason: Doctor's Order 10 mg PO DAILY 30 caps 0RF Patient Instructions: - Follow up with a pain specialist to discuss alternative pain management options. - Schedule an appointment with a psychiatrist to evaluate anxiety and ADHD medication management. - Adjust oxycodone intake to 10 mg every 6 hours as discussed. - Monitor blood pressure regularly and discuss any concerns with your healthcare provider.
[2025-01-07 14:16] VITALS: BP 138/82; PULSE 100; TEMP 36.2; O2SAT 99; BMI 35.4
--- OUTSIDE RECORDS SUMMARY | 2025-01-07 16:43 | XMS_ITS | Clinical Summary ---
Author Organization [facility] Address [address] [place] [address] Care Team Providers Care Baccarat Manager Name Role Phone Unavailable Primary Care Provider [...]
--- OUTSIDE RECORDS SUMMARY | 2025-01-07 16:43 | XMS_ITS | Clinical Summary ---
Author Organization [facility] Address [address] [place] [phone] Phone Care Team Providers Care Machine Repairer Name Role Phone Pcp, Unknown Primary Care [...] (06/27/2022 6:34 AM EST) HDL 61 mg/dL [facility] Comment: Interpretation <40 mg/dL: Low HDL cholesterol (major risk factor for CHD) Greater than or equal to 60 mg/dL: High HDL cholesterol ( negative risk factor for CHD) HDL - cholesterol is affected by a number of factors, e.g. smoking, excerise, hormones, sex and age. CHOLESTEROL 180 0 - 240 mg/dL [facility] TRIGLYCERIDES 195(H) 30 - 160 mg/dL [facility] LDL 80 50 - 129 mg/dL [facility] Comment: LDL levels in terms of risk for coronary heart disease: <100 mg/dL: Optimal 100-129 mg/dL: Near or above optimal 130-159 mg/dL: Borderline high 160-189 mg/dL: High >190 mg/dL: Very High CARDIAC RISK RATIO 3.0(L) 3.4 - 5.0 [facility] Blood 06/27/2022 6:34 AM EST 06/27/2022 6:49 AM EST Rodolfo Porter PMHNP-BC LAB BLOOD ORDERAB LES Final Result [facility] [address] [place] [address] from Last 3 Months or Most Recently Relevant to Health Maintenance [facility] Member Subscriber Plan / Payer (Ef fective 2021-Present) Name:Michele Aragon Relation to Subscriber:Self Name:Michele Aragon Payer ID:Not on file Group ID:Not on file Type:Medicare Address: [place] [id number] [place] [facility] MEDICARE REPLACEMENT Member Subscriber Plan / Payer (Ef fective 2021-) Name:Michele Aragon Relation to Subscriber:Self Name:Michele Aragon Payer ID:Not on file Group ID:Not on file Type:Medicare Address: [place] [id number] [place] [facility] MEDICARE REPLACEMENT [facility] MEDIC[facility] REPLAC[facility] MEDIC[facility] REPLACEMENT Advance Directives For more information, please contact: [phone] (9AM - 5PM [facility], Monday-Monday) * Full Code (Latest Code Status on File) Date Activated Date Inactivated Comments 06/26/2022 2:13 PM Question Answer Comments Code Status Confirmed With: Patient Care Teams Machine Repairer Relationship Specialty Start Date End Date Pcp, Unknown PCP - General 06/24/22 Additional Source Comments The information contained in this document represents components of the legal health record. It is not the complete legal health record.[facility]
--- OUTSIDE RECORDS SUMMARY | 2025-01-07 16:43 | XMS_ITS | Encounter Summary ---
Author Organization [facility] Address [address] [address] Phone Care Team Providers Care Solar Sales Rep Name Role Phone Pcp, Unknown Primary Care Provider Unavailabl e Encounter Details Date Type Department Care Team (Late st Contact Info) Description 06/27/2022 Procedure Pass [facility], Ct Scan - [address] [address] Social History Tobacco Use Types Packs/Day Years [...] documented as of this encounter Care Teams Solar Sales Rep Relationship Specialty Start Date End Date Pcp, Unknown PCP - General 06/24/22 documented as of this encounter Additional Source Comments The information contained in this document represents components of the legal health record. It is not the complete legal health record.[facility]
== END 2025-01-07 14:57 | disposition home or self-care (01) ==
LOC: HO.HMCHD 14:05
PROVIDERS: PCP Internal Medicine; Visit Provider Physician Assistant Medical
DX: I10 Essential (primary) hypertension (principal); M54.9 Dorsalgia, unspecified; G89.29 Other chronic pain; F41.9 Anxiety disorder, unspecified; F90.9 Attention-deficit hyperactivity disorder, unspecified type

== ENCOUNTER → 2025-01-07 14:04 | Outpatient (BNVA) | payer MEDICAID, SELFPAY | PROVIDERS: PCP Internal Medicine; Visit Provider Physician Assistant Medical | DX: I10 Essential (primary) hypertension (principal); M54.9 Dorsalgia, unspecified; G89.29 Other chronic pain; F41.9 Anxiety disorder, unspecified; F90.9 Attention-deficit hyperactivity disorder, unspecified type; Z79.891 Long term (current) use of opiate analgesic; Z79.899 Other long term (current) drug therapy | CPT/HCPCS: 99212 ==

== ENCOUNTER 2025-03-04 16:11 | Outpatient (REF) | payer MEDICARE, MEDICAID, SELFPAY ==
[2025-03-04 16:26] LABS: MANUAL DIFF FLAG NO
[2025-03-04 17:10] LABS: Hematocrit 50.6 % (42.0-52.0); Hemoglobin 17.3 g/dl (14.0-18.0); Imm Gran Abs Auto 0.04 X10*3/uL (0.00-0.03); Imm Gran Pct Auto 0.4 % (0.0-0.4); Lymphocytes Absolute Auto 2.8 X10*3/uL (1.2-4.9); Mean Corpuscular HGB Conc 34.2 g/dl (31.0-36.0); Mean Corpuscular Hemoglobin 29.4 pg (27.0-33.0); Mean Corpuscular Volume 86.1 fL (80.0-98.0); NRBC Abs Auto 0.000 X10*3/uL (0.0-0.012); NRBC Pct Auto 0.0 /100WBC (0.0-0.2); Platelet Count 309 X10*3/uL (160-400); Red Blood Count 5.88 X10*6/uL (4.60-5.80); White Blood Count 9.3 X10*3/uL (4.8-10.8)
[2025-03-04 17:40] LABS: Alanine Aminotransferase 35 U/L (0-40); Albumin Level 5.3 g/dL (3.5-5.0); Alkaline Phosphatase 61 U/L (39-117); Anion Gap 15 (12-20); Aspartate Amino Transferase 26 U/L (5-37); Blood Urea Nitrogen 18 mg/dL (9-16); Calcium 9.7 mg/dL (8.4-10.2); Carbon Dioxide 24 mmol/L (22-29); Chloride 105 mmol/L (96-108); Estimated Glomerular Filt Rate > 60; Potassium 3.6 mmol/L (3.3-5.1); Sodium 140 mmol/L (135-145); Total Protein 8.2 g/dL (6.5-8.0)
--- OUTSIDE RECORDS SUMMARY | 2025-03-04 18:31 | XMS_ITS | Clinical Summary ---
Author Organization [facility] Address [address] [place] [id number] Phone Care Team Providers Care Clinic Manager Name Role Phone Pcp, Unknown Primary Care [...] 2024 1, 04/30/2009 COVID-19 VACCINE (1 - 2024-2 6 season) 2024 SCREENING FOR DIABETES 11/19/2025 3, [...] (06/27/2022 6:34 AM EST) HDL 61 mg/dL [facility] Comment: Interpretation <40 mg/dL: Low HDL cholesterol (major risk factor for CHD) Greater than or equal to 60 mg/dL: High HDL cholesterol ( negative risk factor for CHD) HDL - cholesterol is affected by a number of factors, e.g. smoking, excerise, hormones, sex and age. CHOLESTEROL 180 0 - 240 mg/dL [facility] TRIGLYCERIDES 195(H) 30 - 160 mg/dL [facility] LDL 80 50 - 129 mg/dL [facility] Comment: LDL levels in terms of risk for coronary heart disease: <100 mg/dL: Optimal 100-129 mg/dL: Near or above optimal 130-159 mg/dL: Borderline high 160-189 mg/dL: High >190 mg/dL: Very High CARDIAC RISK RATIO 3.0(L) 3.4 - 5.0 [facility] Blood 06/27/2022 6:34 AM EST 06/27/2022 6:49 AM EST Rodolfo Porter PMHNP-BC LAB BLOOD BKR ORD ERABLES Final Result [facility] [address] [place] [address] from Last 3 Months or Most Recently Relevant to Health Maintenance Insurance [facility] MEDICARE REPLACEMENT [facility] MEDICARE REPLACEMENT Member Subscriber Plan / Payer (Ef fective 2021-Present) Name:Michele Aragon Relation to Subscriber:Self Name:Michele Aragon Payer ID:Not on file Group ID:Not on file Type:Medicare Address: [place] [id number] [facility] MEDICARE REPLACEMENT [facility] MEDICARE REPLACEMENT Member Subscriber Plan / Payer (Ef fective 2021-Present) Name:Michele Aragon Relation to Subscriber:Self Name:Michele Aragon Payer ID:Not on file Group ID:Not on file Type:Medicare Address: [place] [id number] [facility] MEDICARE REPLACEMENT [facility] MEDICARE REPLACEMENT Advance Directives For more information, please contact: [phone] (9AM - 5PM [place], Monday-Monday) * Full Code (Latest Code Status on File) Date Activated Date Inactivated Comments 06/26/2022 2:13 PM Question Answer Comments Code Status Confirmed With: Patient Care Teams Clinic Manager Relationship Specialty Start Date End Date Pcp, Unknown PCP - General 06/24/22 Additional Source Comments The information contained in this document represents components of the legal health record. It is not the complete legal health record.[facility]
--- OUTSIDE RECORDS SUMMARY | 2025-03-04 18:31 | XMS_ITS | Encounter Summary ---
Author Organization [facility] Address [address] [address] Phone Care Team Providers Care Stock Sorter Name Role Phone Pcp, Unknown Primary Care Provider Unavailabl e Encounter Details Date Type Department Care Team (Late st Contact Info) Description 06/27/2022 Procedure Pass [facility], Ct Scan - [address] [address] Social History Tobacco Use Types Packs/Day Years [...] documented as of this encounter Care Teams Stock Sorter Relationship Specialty Start Date End Date Pcp, Unknown PCP - General 06/24/22 documented as of this encounter Additional Source Comments The information contained in this document represents components of the legal health record. It is not the complete legal health record.[facility]
== END 2025-03-04 16:12 | disposition home or self-care (01) ==
LOC: HO.LAB 16:11
PROVIDERS: PCP Physician Assistant; Visit Provider Physician Assistant Medical
DX: Z00.00 Encounter for general adult medical examination without abnormal findings (principal); F19.20 Other psychoactive substance dependence, uncomplicated; F90.9 Attention-deficit hyperactivity disorder, unspecified type; F41.9 Anxiety disorder, unspecified; I10 Essential (primary) hypertension; F90.0 Attention-deficit hyperactivity disorder, predominantly inattentive type; F33.1 Major depressive disorder, recurrent, moderate; M54.42 Lumbago with sciatica, left side; M54.41 Lumbago with sciatica, right side; G89.29 Other chronic pain; E66.9 Obesity, unspecified; Z68.34 Body mass index [BMI] 34.0-34.9, adult; Z79.899 Other long term (current) drug therapy
CPT/HCPCS: 36415; 80053; 84443; 85025; 96127